=== PATIENT | female | born 1990 | race Two or more races ===

== ENCOUNTER 2021-11-24 14:26 | Inpatient (IN) | payer MEDICARE, MEDICAID ==
[~2021-11-24] VITALS: Ht 152.4 cm; Wt 91.3 kg
[2021-11-25 01:14] VITALS: BP 117/78
[2021-11-25] MEDS ORDERED: NICOTINE 14 MG/24 HOUR PATCH TD PRN (06:45)
[2021-11-25] MEDS ORDERED: CloNIDine HCL 0.1 MG TABLET PO PRN (06:45)
[2021-11-25] MEDS ORDERED: DOCUSATE SODIUM 100 MG CAPSULE PO PRN (06:45)
[2021-11-25] MEDS ORDERED: MAGNESIUM HYDROXIDE SUSPENSION 30 ML UDCUP PO PRN (06:45)
[2021-11-25] MEDS ORDERED: LOPERAMIDE HCL 2 MG CAPSULE PO PRN (06:45)
[2021-11-25 07:15] LABS: BASOPHILS % (AUTO) 0.3 % (0.0-2.0); EOSINOPHILS % (AUTO) 1.9 % (1.0-6.0); HEMOGLOBIN 12.1 g/dL (12.0-16.0); LYMPHOCYTES # (AUTO) 2.9 K/uL (1.0-4.8); LYMPHOCYTES % (AUTO) 42.6 % (22.0-44.0); MEAN CORPUSCULAR HEMOGLOBIN 27.2 pg (26.0-34.0); MEAN CORPUSCULAR HGB CONC 32.8 G/dL (31.0-37.0); MEAN CORPUSCULAR VOLUME 83 fL (80-100); MONOCYTES # (AUTO) 0.6 K/uL (0.1-1.0); MONOCYTES % (AUTO) 9.3 % (2.0-9.0); NEUTROPHILS # (AUTO) 3.2 K/uL (1.8-7.7); NEUTROPHILS % (AUTO) 45.9 % (40.0-70.0); PLATELET COUNT (AUTO) 316 K/uL (150-450); RED BLOOD CELL COUNT(AUTO) 4.46 MIL/uL (4.00-5.20); RED CELL DISTRIBUTION WIDTH 15.1 % (11.5-14.5)
[2021-11-25 07:45] LABS: ALANINE AMINOTRANSFERASE 58 U/L (12-78); ALBUMIN 3.2 g/dL (3.4-5.0); ALKALINE PHOSPHATASE 56 U/L (46-116); ANION GAP 9 mmol/L (8-16); ASPARTATE AMINOTRANSFERASE 39 U/L (15-37); BILIRUBIN,TOTAL 0.5 mg/dL (0.1-1.0); CALCIUM, TOTAL 9.4 mg/dL (8.8-10.5); CARBON DIOXIDE 29 mmol/L (22-29); CHLORIDE 103 mmol/L (98-107); CHOL/HDL RATIO 2.6 (3.9-5.7); CHOLESTEROL 141 mg/dL (131-200); CREATININE 0.65 mg/dL (0.60-1.30); FREE T4 (FREE THYROXINE) 1.64 ng/dL (0.76-1.46); GLUCOSE,RANDOM 82 mg/dL (70-110); HCG,QUANTITATIVE < 1 mIU/mL (0-6); HDL CHOLESTEROL 55 mg/dL (40-60); LDL CHOL (CALC.) 70 mg/dL (0-130); POTASSIUM 3.2 mmol/L (3.5-5.1); SODIUM SERUM 141 mmol/L (136-145); THYROID STIMULATING HORMONE 0.88 uIU/mL (0.36-3.74); TOTAL PROTEIN, SERUM 6.8 g/dL (6.4-8.2); TRIGLYCERIDES 82 mg/dL (15-150); UREA NITROGEN, BLOOD 16 mg/dL (7-18)
[2021-11-25 07:46] LABS: GLOMERULAR FILTR. RATE CALC > 60 mL/min (>60)
[2021-11-25 07:53] LABS: HEMOGLOBIN A1C 5.3 % (3.8-5.6)
[2021-11-25 08:38] VITALS: BP 130/85
[2021-11-25] MEDS: HALOPERIDOL 5 MG TABLET PO PRN (09:13)
[2021-11-25] MEDS: LORazepam 2 MG TABLET PO PRN ×2 (09:13→19:03)
[2021-11-25] MEDS ORDERED: POTASSIUM CHLORIDE 20 MEQ ER TABLET PO ONE (11:00)
[2021-11-25] MEDS: DIVALPROEX SODIUM 500 MG DR TABLET PO SCH ×2 (12:30→20:10)
[2021-11-25] MEDS: RisperiDONE 2 MG TABLET PO SCH ×2 (12:30→20:10)
[2021-11-25] MEDS: GuaiFENesin/D-METHORPHAN [SUGAR-FREE] 200-20MG/10 ML SYRUP UDCUP PO PRN (17:52)
[2021-11-26 04:13] VITALS: BP 134/92
[2021-11-26] MEDS: DIVALPROEX SODIUM 500 MG DR TABLET PO SCH ×2 (08:05→20:06)
[2021-11-26] MEDS: PETROLATUM,WHITE 28 GM JELLY TP PRN (08:05)
[2021-11-26] MEDS: RisperiDONE 2 MG TABLET PO SCH ×2 (08:06→20:06)
[2021-11-26 08:12] VITALS: BP 125/75
[2021-11-26] MEDS: LORazepam 2 MG TABLET PO PRN (09:01)
[2021-11-26] MEDS: GuaiFENesin/D-METHORPHAN [SUGAR-FREE] 200-20MG/10 ML SYRUP UDCUP PO PRN ×2 (10:33→18:17)
[2021-11-26] MEDS: MAG HYDROX/AL HYDROX/SIMETH ES 30 ML SUSPENSION UDCUP PO PRN ×2 (16:10→22:31)
[2021-11-26] MEDS: IBUPROFEN 400 MG TABLET PO PRN (17:41)
[2021-11-26 20:17] VITALS: BP 125/65
[2021-11-26] MEDS: ONDANSETRON HCL 4 MG TABLET PO PRN (21:06)
[2021-11-27] MEDS: GuaiFENesin/D-METHORPHAN [SUGAR-FREE] 200-20MG/10 ML SYRUP UDCUP PO PRN (00:59)
[2021-11-27] MEDS: IBUPROFEN 400 MG TABLET PO PRN ×2 (00:59→22:55)
[2021-11-27] MEDS: ONDANSETRON HCL 4 MG TABLET PO PRN ×2 (04:29→15:46)
[2021-11-27 08:24] VITALS: BP 132/87
[2021-11-27] MEDS: LORazepam 2 MG TABLET PO PRN (08:48)
[2021-11-27] MEDS: HALOPERIDOL 5 MG TABLET PO PRN (08:48)
[2021-11-27] MEDS: RisperiDONE 2 MG TABLET PO SCH ×2 (08:49→20:19)
[2021-11-27] MEDS: DIVALPROEX SODIUM 500 MG DR TABLET PO SCH ×2 (08:49→20:19)
[2021-11-27] MEDS: PETROLATUM,WHITE 28 GM JELLY TP PRN (10:24)
[2021-11-27] MEDS: MAG HYDROX/AL HYDROX/SIMETH ES 30 ML SUSPENSION UDCUP PO PRN ×2 (15:46→22:10)
[2021-11-27 21:25] VITALS: BP 133/84
[2021-11-28 04:24] VITALS: BP 128/64
[2021-11-28] MEDS: ONDANSETRON HCL 4 MG TABLET PO PRN ×4 (06:50→20:23)
[2021-11-28] MEDS: DIVALPROEX SODIUM 500 MG DR TABLET PO SCH ×2 (07:57→20:03)
[2021-11-28] MEDS: RisperiDONE 2 MG TABLET PO SCH ×2 (07:57→20:03)
[2021-11-28 08:12] VITALS: BP 141/87
[2021-11-28] MEDS: IBUPROFEN 400 MG TABLET PO PRN (10:00)
[2021-11-28 13:01] LABS: APPEARANCE,URINE CLEAR (CLEAR); BILIRUBIN,URINE NEGATIVE (NEGATIVE); GLUCOSE, URINE (UA) NEGATIVE (NEGATIVE); KETONES,URINE NEGATIVE (NEGATIVE); LEUKOCYTE ESTERASE ,URINE NEGATIVE (NEGATIVE); NITRATE,URINE NEGATIVE (NEGATIVE); OCCULT BLOOD,URINE NEGATIVE (NEGATIVE); PROTEIN,URINE NEGATIVE (NEGATIVE); SPECIFIC GRAVITIY, URINE 1.002 (1.003-1.030); UROBILINOGEN,URINE <=1.0 mg/dL (<=1.0)
[2021-11-28 13:11] LABS: AMPHET/METH SCREEN,URINE NEGATIVE (NEGATIVE); BARBITURATE SCREEN, URINE NEGATIVE (NEGATIVE); BENZODIAZEPINES SCREEN,URINE NEGATIVE (NEGATIVE); CANNABINOID SCREEN,URINE NEGATIVE (NEGATIVE); COCAINE SCREEN,URINE NEGATIVE (NEGATIVE); METHADONE SCREEN, URINE NEGATIVE (NEGATIVE); OPIATE SCREEN,URINE NEGATIVE (NEGATIVE)
[2021-11-28 13:14] LABS: PHENCYCLIDINE SCREEN,URINE NEGATIVE (NEGATIVE)
[2021-11-28] MEDS: LORazepam 2 MG TABLET PO PRN ×2 (16:06→20:58)
[2021-11-28 20:46] VITALS: BP 119/87
[2021-11-29] MEDS: ONDANSETRON HCL 4 MG TABLET PO PRN ×2 (04:33→13:54)
[2021-11-29] MEDS: IBUPROFEN 400 MG TABLET PO PRN ×2 (04:39→16:53)
[2021-11-29] MEDS: RisperiDONE 2 MG TABLET PO SCH ×2 (08:18→20:10)
[2021-11-29] MEDS: DIVALPROEX SODIUM 500 MG DR TABLET PO SCH ×2 (08:18→20:10)
[2021-11-29 08:24] VITALS: BP 130/80
[2021-11-29] MEDS: LORazepam 2 MG TABLET PO PRN (10:34)
[2021-11-29 16:50] VITALS: BP 128/82
[2021-11-29 20:29] VITALS: BP 128/82
[2021-11-30] MEDS: ZOLPIDEM TARTRATE 10 MG TABLET PO PRN (02:04)
[2021-11-30] MEDS: IBUPROFEN 400 MG TABLET PO PRN ×3 (02:04→19:10)
[2021-11-30] MEDS: LORazepam 2 MG TABLET PO PRN ×2 (02:04→09:35)
[2021-11-30 08:40] VITALS: BP 122/73
[2021-11-30] MEDS: DIVALPROEX SODIUM 500 MG DR TABLET PO SCH ×2 (09:00→21:00)
[2021-11-30] MEDS: RisperiDONE 2 MG TABLET PO SCH ×2 (09:00→21:00)
[2021-11-30] MEDS: ONDANSETRON HCL 4 MG TABLET PO PRN (09:42)
[2021-11-30] MEDS: MAG HYDROX/AL HYDROX/SIMETH ES 30 ML SUSPENSION UDCUP PO PRN (16:02)
[2021-11-30 21:23] VITALS: BP 125/76
[2021-12-01] MEDS: ONDANSETRON HCL 4 MG TABLET PO PRN ×4 (00:51→20:18)
[2021-12-01] MEDS: LORazepam 2 MG TABLET PO PRN ×3 (00:52→14:58)
[2021-12-01] MEDS: ACETAMINOPHEN 325 MG TABLET PO PRN (00:52)
[2021-12-01 04:01] VITALS: BP 120/71
[2021-12-01] MEDS: IBUPROFEN 400 MG TABLET PO PRN (08:05)
[2021-12-01] MEDS: DIVALPROEX SODIUM 500 MG DR TABLET PO SCH ×2 (08:05→20:18)
[2021-12-01] MEDS: RisperiDONE 2 MG TABLET PO SCH ×2 (08:05→20:18)
[2021-12-01 20:50] VITALS: BP 131/69
[2021-12-02] MEDS: LORazepam 2 MG TABLET PO PRN ×2 (03:44→20:08)
[2021-12-02 03:46] VITALS: BP 145/84
[2021-12-02] MEDS: IBUPROFEN 400 MG TABLET PO PRN ×2 (03:50→13:24)
[2021-12-02] MEDS: ONDANSETRON HCL 4 MG TABLET PO PRN (04:25)
[2021-12-02 08:34] VITALS: BP 136/82
[2021-12-02] MEDS: RisperiDONE 2 MG TABLET PO SCH ×2 (08:39→20:08)
[2021-12-02] MEDS: DIVALPROEX SODIUM 500 MG DR TABLET PO SCH ×2 (08:40→20:08)
[2021-12-02] MEDS: MAG HYDROX/AL HYDROX/SIMETH ES 30 ML SUSPENSION UDCUP PO PRN (13:23)
[2021-12-02 20:10] VITALS: BP 137/77
[2021-12-03] MEDS: MAG HYDROX/AL HYDROX/SIMETH ES 30 ML SUSPENSION UDCUP PO PRN ×2 (01:43→19:52)
[2021-12-03] MEDS: LORazepam 2 MG TABLET PO PRN ×2 (08:16→20:11)
[2021-12-03] MEDS: RisperiDONE 2 MG TABLET PO SCH ×2 (08:17→20:11)
[2021-12-03] MEDS: DIVALPROEX SODIUM 500 MG DR TABLET PO SCH ×2 (09:00→20:14)
[2021-12-03] MEDS: HALOPERIDOL LACTATE 5 MG/ML VIAL IM PRN ×2 (09:34→20:24)
[2021-12-03 10:10] VITALS: BP 123/72
[2021-12-03] MEDS: ONDANSETRON HCL 4 MG TABLET PO PRN (12:01)
[2021-12-03 20:04] VITALS: BP 128/81
[2021-12-04] MEDS: ACETAMINOPHEN 325 MG TABLET PO PRN ×2 (05:58→06:02)
[2021-12-04] MEDS: IBUPROFEN 400 MG TABLET PO PRN (06:06)
[2021-12-04] MEDS: RisperiDONE 2 MG TABLET PO SCH ×2 (08:14→20:24)
[2021-12-04] MEDS: DIVALPROEX SODIUM 500 MG DR TABLET PO SCH ×3 (08:14→20:24)
[2021-12-04] MEDS: LORazepam 2 MG TABLET PO PRN ×2 (08:17→20:31)
[2021-12-04] MEDS: HALOPERIDOL LACTATE 5 MG/ML VIAL IM PRN ×2 (08:58→20:24)
[2021-12-04 10:58] VITALS: BP 124/68
[2021-12-04] MEDS: ONDANSETRON HCL 4 MG TABLET PO PRN (11:19)
[2021-12-04] MEDS: MAG HYDROX/AL HYDROX/SIMETH ES 30 ML SUSPENSION UDCUP PO PRN (20:31)
[2021-12-05 00:10] VITALS: BP 120/81
[2021-12-05] MEDS: ZOLPIDEM TARTRATE 10 MG TABLET PO PRN (00:57)
[2021-12-05] MEDS: LORazepam 2 MG TABLET PO PRN ×3 (01:20→20:35)
[2021-12-05] MEDS: ONDANSETRON HCL 4 MG TABLET PO PRN (01:20)
[2021-12-05] MEDS: DIVALPROEX SODIUM 500 MG DR TABLET PO SCH ×2 (08:26→20:39)
[2021-12-05] MEDS: IBUPROFEN 400 MG TABLET PO PRN (08:26)
[2021-12-05] MEDS: RisperiDONE 2 MG TABLET PO SCH ×2 (08:26→20:35)
[2021-12-05] MEDS: HALOPERIDOL LACTATE 5 MG/ML VIAL IM PRN ×2 (08:38→20:39)
[2021-12-05] MEDS: MAG HYDROX/AL HYDROX/SIMETH ES 30 ML SUSPENSION UDCUP PO PRN ×2 (10:22→20:35)
[2021-12-05] MEDS: ACETAMINOPHEN 325 MG TABLET PO PRN (20:34)
[2021-12-06] MEDS: LORazepam 2 MG TABLET PO PRN ×3 (03:10→17:41)
[2021-12-06] MEDS: HALOPERIDOL 5 MG TABLET PO PRN ×2 (03:10→17:42)
[2021-12-06] MEDS: GuaiFENesin/D-METHORPHAN [SUGAR-FREE] 200-20MG/10 ML SYRUP UDCUP PO PRN (03:40)
[2021-12-06] MEDS: PETROLATUM,WHITE 28 GM JELLY TP PRN (04:30)
[2021-12-06 05:03] VITALS: BP 119/75
[2021-12-06] MEDS: RisperiDONE 2 MG TABLET PO SCH ×2 (08:14→21:00)
[2021-12-06] MEDS: IBUPROFEN 400 MG TABLET PO PRN ×2 (08:14→16:17)
[2021-12-06] MEDS: MAG HYDROX/AL HYDROX/SIMETH ES 30 ML SUSPENSION UDCUP PO PRN (08:14)
[2021-12-06] MEDS: DIVALPROEX SODIUM 500 MG DR TABLET PO SCH ×2 (08:15→21:00)
[2021-12-06] MEDS: HALOPERIDOL LACTATE 5 MG/ML VIAL IM PRN ×3 (08:16→21:11)
[2021-12-06 16:20] VITALS: BP 122/74
[2021-12-06 17:20] VITALS: BP 132/78
[2021-12-06 20:12] VITALS: BP 131/83
[2021-12-07 00:23] VITALS: BP 138/84
[2021-12-07] MEDS: LORazepam 2 MG TABLET PO PRN ×2 (00:24→09:09)
[2021-12-07] MEDS: HALOPERIDOL 5 MG TABLET PO PRN ×2 (04:19→13:58)
[2021-12-07 05:00] VITALS: BP 134/72
[2021-12-07] MEDS: IBUPROFEN 400 MG TABLET PO PRN ×2 (05:00→13:49)
[2021-12-07] MEDS: RisperiDONE 2 MG TABLET PO SCH ×2 (08:41→20:29)
[2021-12-07] MEDS: DIVALPROEX SODIUM 500 MG DR TABLET PO SCH ×2 (08:44→20:29)
[2021-12-07] MEDS: HALOPERIDOL LACTATE 5 MG/ML VIAL IM PRN (08:45)
[2021-12-07 20:14] VITALS: BP 125/72
[2021-12-08] MEDS: LORazepam 2 MG TABLET PO PRN ×4 (02:18→23:32)
[2021-12-08] MEDS: ZOLPIDEM TARTRATE 10 MG TABLET PO PRN (02:18)
[2021-12-08] MEDS: HALOPERIDOL 5 MG TABLET PO PRN ×2 (02:18→13:42)
[2021-12-08] MEDS: RisperiDONE 2 MG TABLET PO SCH (08:10)
[2021-12-08] MEDS: DIVALPROEX SODIUM 500 MG DR TABLET PO SCH (08:15)
[2021-12-08] MEDS: HALOPERIDOL LACTATE 5 MG/ML VIAL IM PRN (08:16)
[2021-12-08 08:18] VITALS: BP 126/71
[2021-12-08] MEDS ORDERED: RisperiDONE 3 MG TABLET PO SCH (09:00)
[2021-12-08] MEDS: ALBUTEROL SULFATE HFA 90 MCG/PUFF 8 GM INHALER IH PRN ×2 (10:00→23:47)
[2021-12-08] MEDS: IBUPROFEN 400 MG TABLET PO PRN ×2 (13:57→23:43)
[2021-12-08 20:18] VITALS: BP 122/73
[2021-12-08] MEDS: RisperiDONE 3 MG TABLET PO SCH (20:24)
[2021-12-08 23:32] VITALS: BP 103/65
[2021-12-09] MEDS: ZOLPIDEM TARTRATE 10 MG TABLET PO PRN ×2 (02:59→23:00)
[2021-12-09] MEDS: ACETAMINOPHEN 325 MG TABLET PO PRN (06:07)
[2021-12-09 08:08] VITALS: BP 116/68
[2021-12-09] MEDS: GuaiFENesin/D-METHORPHAN [SUGAR-FREE] 200-20MG/10 ML SYRUP UDCUP PO PRN (09:07)
[2021-12-09] MEDS: RisperiDONE 3 MG TABLET PO SCH ×2 (09:08→20:17)
[2021-12-09] MEDS: LORazepam 2 MG TABLET PO PRN ×3 (09:08→20:18)
[2021-12-09] MEDS: HALOPERIDOL 5 MG TABLET PO PRN ×3 (09:08→20:18)
[2021-12-09] MEDS: IBUPROFEN 400 MG TABLET PO PRN (09:12)
[2021-12-09 20:12] VITALS: BP 111/73
[2021-12-10 02:31] VITALS: BP 131/82
[2021-12-10] MEDS: HALOPERIDOL 5 MG TABLET PO PRN (02:39)
[2021-12-10] MEDS: LORazepam 2 MG TABLET PO PRN ×3 (02:39→22:28)
[2021-12-10] MEDS: ACETAMINOPHEN 325 MG TABLET PO PRN (02:48)
[2021-12-10] MEDS: ALBUTEROL SULFATE HFA 90 MCG/PUFF 8 GM INHALER IH PRN ×2 (04:32→22:32)
[2021-12-10] MEDS: RisperiDONE 3 MG TABLET PO SCH ×2 (08:05→20:33)
[2021-12-10] MEDS: IBUPROFEN 400 MG TABLET PO PRN ×2 (08:05→22:30)
[2021-12-10 08:06] VITALS: BP 124/79
[2021-12-10] MEDS: PETROLATUM,WHITE 28 GM JELLY TP PRN (10:04)
[2021-12-10 16:26] LABS: GLUCOMETER DEV NAME(LOC) POC.BV
[2021-12-10 20:23] VITALS: BP 132/72
[2021-12-11] MEDS: LORazepam 2 MG TABLET PO PRN ×4 (04:01→20:53)
[2021-12-11] MEDS: GuaiFENesin/D-METHORPHAN [SUGAR-FREE] 200-20MG/10 ML SYRUP UDCUP PO PRN (04:01)
[2021-12-11 04:12] VITALS: BP 136/76
[2021-12-11 08:21] VITALS: BP 124/72
[2021-12-11] MEDS: RisperiDONE 3 MG TABLET PO SCH ×2 (08:44→20:21)
[2021-12-11] MEDS: HALOPERIDOL 5 MG TABLET PO PRN ×2 (08:46→14:33)
[2021-12-11] MEDS: ACETAMINOPHEN 325 MG TABLET PO PRN (14:34)
[2021-12-11 20:11] VITALS: BP 140/85
[2021-12-11] MEDS: ZOLPIDEM TARTRATE 10 MG TABLET PO PRN (20:20)
[2021-12-11] MEDS: ALBUTEROL SULFATE HFA 90 MCG/PUFF 8 GM INHALER IH PRN (22:58)
[2021-12-12] MEDS: LORazepam 2 MG TABLET PO PRN ×2 (08:04→20:15)
[2021-12-12] MEDS: RisperiDONE 3 MG TABLET PO SCH ×2 (08:04→20:15)
[2021-12-12 10:17] VITALS: BP 128/75
[2021-12-12] MEDS: IBUPROFEN 400 MG TABLET PO PRN (13:37)
[2021-12-12] MEDS: GuaiFENesin/D-METHORPHAN [SUGAR-FREE] 200-20MG/10 ML SYRUP UDCUP PO PRN (13:38)
[2021-12-12] MEDS: ALBUTEROL SULFATE HFA 90 MCG/PUFF 8 GM INHALER IH PRN (20:25)
[2021-12-12 21:23] VITALS: BP 127/72
[2021-12-13 00:47] VITALS: BP 106/62
[2021-12-13] MEDS: GuaiFENesin/D-METHORPHAN [SUGAR-FREE] 200-20MG/10 ML SYRUP UDCUP PO PRN (01:18)
[2021-12-13] MEDS: ACETAMINOPHEN 325 MG TABLET PO PRN (01:18)
[2021-12-13 08:06] LABS: GLUCOMETER DEV NAME(LOC) POC.BV
[2021-12-13 08:53] VITALS: BP 114/70
[2021-12-13] MEDS: RisperiDONE 3 MG TABLET PO SCH (20:09)
== END 2021-12-13 21:58 | disposition home or self-care (01) | DRG 885 ==
LOC: B3A 20:12
PROVIDERS: ADMIT Psychiatry & Neurology Psychiatry; ATTEND Psychiatry & Neurology Psychiatry
DX: F25.0 Schizoaffective disorder, bipolar type (principal); F31.4 Bipolar disorder, current episode depressed, severe, without psychotic features; E66.9 Obesity, unspecified; E87.6 Hypokalemia; F10.10 Alcohol abuse, uncomplicated; R74.01 Elevation of levels of liver transaminase levels; Z20.822 Contact with and (suspected) exposure to COVID-19; Z79.899 Other long term (current) drug therapy; Z59.00 Homelessness unspecified; Z68.39 Body mass index [BMI] 39.0-39.9, adult; Z88.0 Allergy status to penicillin; Z88.1 Allergy status to other antibiotic agents
CPT/HCPCS: 80053; 80061; 80307; 81003; 83036; 84132; 84439; 84443; 84702; 85025; J1630; J3535; Q0162

== ENCOUNTER 2021-12-13 10:06 | Inpatient (IN) | payer MEDICARE, OTHER ==
[~2021-12-13] VITALS: Ht 162.6 cm; Wt 89.2 kg
[2021-12-13] MEDS ORDERED: ACETAMINOPHEN 500 MG TABLET PO ONE (11:30)
[2021-12-13 11:36] LABS: BASOPHILS % (AUTO) 0.2 % (0.0-2.0); EOSINOPHILS % (AUTO) 0 % (1.0-6.0); HEMATOCRIT 37.9 % (36-46); HEMOGLOBIN 12.1 g/dL (12.0-16.0); LYMPHOCYTES # (AUTO) 1.9 K/uL (1.0-4.8); LYMPHOCYTES % (AUTO) 10.3 % (22.0-44.0); MEAN CORPUSCULAR HEMOGLOBIN 26.9 pg (26.0-34.0); MEAN CORPUSCULAR HGB CONC 31.9 G/dL (31.0-37.0); MEAN CORPUSCULAR VOLUME 84 fL (80-100); MONOCYTES # (AUTO) 1.8 K/uL (0.1-1.0); MONOCYTES % (AUTO) 9.6 % (2.0-9.0); NEUTROPHILS # (AUTO) 14.7 K/uL (1.8-7.7); NEUTROPHILS % (AUTO) 79.9 % (40.0-70.0); PLATELET COUNT (AUTO) 340 K/uL (150-450); RED BLOOD CELL COUNT(AUTO) 4.51 MIL/uL (4.00-5.20); RED CELL DISTRIBUTION WIDTH 15.4 % (11.5-14.5)
[2021-12-13 11:43] LABS: COVID AG,FIA SOURCE NASOPHARYNGEAL
[2021-12-13 11:48] LABS: ANION GAP 7 mmol/L (8-16); CALCIUM, TOTAL 9.4 mg/dL (8.8-10.5); CARBON DIOXIDE 30 mmol/L (22-29); CHLORIDE 97 mmol/L (98-107); CREATININE 0.72 mg/dL (0.60-1.30); GLUCOSE,RANDOM 111 mg/dL (70-110); POTASSIUM 3.3 mmol/L (3.5-5.1); SODIUM SERUM 134 mmol/L (136-145); UREA NITROGEN, BLOOD 15 mg/dL (7-18)
[2021-12-13 11:49] LABS: GLOMERULAR FILTR. RATE CALC > 60 mL/min (>60)
[2021-12-13 11:54] LABS: ALANINE AMINOTRANSFERASE 30 U/L (12-78); ALBUMIN 3.2 g/dL (3.4-5.0); ALKALINE PHOSPHATASE 86 U/L (46-116); ASPARTATE AMINOTRANSFERASE 17 U/L (15-37); BILIRUBIN,TOTAL 0.4 mg/dL (0.1-1.0); TOTAL PROTEIN, SERUM 7.8 g/dL (6.4-8.2)
[2021-12-13 12:04] LABS: LACTIC ACID 1.3 mmol/L (0.4-2.0)
[2021-12-13 12:08] LABS: INFLUENZA TYPE A NEGATIVE FOR TYPE A (NEGATIVE); INFLUENZA TYPE B NEGATIVE FOR TYPE B (NEGATIVE)
[2021-12-13] MEDS ORDERED: CLINDAMYCIN 600 MG/D5% WATER 50 ML IV ONE (13:30)
[2021-12-13] MEDS ORDERED: DEXAMETHASONE SOD PHOS 4 MG/ML 5 ML VIAL IVP ONE (13:30)
[2021-12-13] MEDS ORDERED: SODIUM CHLORIDE 0.9% 100 ML ONE (13:56)
[2021-12-13] MEDS ORDERED: IOHEXOL 350 MG/ML 100 ML VIAL ONE (13:56)
[2021-12-13] MEDS ORDERED: SODIUM CHLORIDE 0.9% 1,000 ML IV ONE (14:45)
[2021-12-13] MEDS ORDERED: POTASSIUM CHLORIDE 10% 40 MEQ/30 ML LIQUID UDCUP PO ONE (19:15)
[2021-12-13] MEDS ORDERED: ACETAMINOPHEN 325 MG TABLET PO PRN (19:15)
[2021-12-13] MEDS ORDERED: ONDANSETRON HCL 4 MG/2 ML VIAL IVP PRN (19:15)
[2021-12-13] MEDS: SODIUM CHLORIDE 0.9% 1,000 ML IV SCH (19:21)
[2021-12-13 20:09] LABS: APPEARANCE,URINE CLEAR (CLEAR); BILIRUBIN,URINE NEGATIVE (NEGATIVE); GLUCOSE, URINE (UA) NEGATIVE (NEGATIVE); KETONES,URINE NEGATIVE (NEGATIVE); LEUKOCYTE ESTERASE ,URINE TRACE (NEGATIVE); NITRATE,URINE NEGATIVE (NEGATIVE); OCCULT BLOOD,URINE NEGATIVE (NEGATIVE); PROTEIN,URINE NEGATIVE (NEGATIVE); UROBILINOGEN,URINE <=1.0 mg/dL (<=1.0)
[2021-12-13 20:21] LABS: BACTERIA,URINE None Seen /HPF (None Seen); RBC,URINE None Seen /HPF (0-2); SQUAMOUS EPITHELIAL CELL,UR Moderate /LPF (None Seen)
[2021-12-13 22:00] VITALS: BP 111/63
[2021-12-14] MEDS: CLINDAMYCIN 600 MG/D5% WATER 50 ML IV SCH ×3 (03:00→17:51)
[2021-12-14 03:31] VITALS: BP 131/76
[2021-12-14] MEDS: SODIUM CHLORIDE 0.9% 1,000 ML IV SCH (11:06)
[2021-12-14 12:08] VITALS: BP 116/91
[2021-12-14] MEDS ORDERED: BISACODYL 10 MG RECTAL RECTAL SUPPOSITORY PR PRN (13:45)
[2021-12-14] MEDS ORDERED: IPRATROPIUM BROMIDE 0.5 MG/2.5 ML NEB SOLUTION NEB PRN (13:45)
[2021-12-14] MEDS ORDERED: ALBUTEROL SULFATE 2.5 MG/0.5 ML NEB SOLUTION NEB PRN (13:45)
[2021-12-14] MEDS ORDERED: ONDANSETRON HCL 4 MG/2 ML VIAL IVP PRN (13:45)
[2021-12-14] MEDS ORDERED: MAGNESIUM HYDROXIDE SUSPENSION 30 ML UDCUP PO PRN (13:45)
[2021-12-14] MEDS: LORazepam 2 MG TABLET PO PRN ×2 (14:34→22:04)
[2021-12-14] MEDS: ACETAMINOPHEN 325 MG TABLET PO PRN (14:34)
[2021-12-14 16:00] VITALS: BP 120/84
[2021-12-14] MEDS: HEPARIN SODIUM,PORCINE 5,000 UNITS/ML VIAL SQ SCH (16:04)
[2021-12-14 20:14] VITALS: BP 128/82
[2021-12-14] MEDS: ZOLPIDEM TARTRATE 5 MG TABLET PO PRN (22:04)
[2021-12-14 23:05] VITALS: BP 108/64
[2021-12-15] MEDS ORDERED: HEPARIN SODIUM,PORCINE 5,000 UNITS/ML VIAL SQ SCH
[2021-12-15] MEDS: CLINDAMYCIN 600 MG/D5% WATER 50 ML IV SCH ×3 (00:34→17:03)
[2021-12-15] MEDS: SODIUM CHLORIDE 0.9% 1,000 ML IV SCH ×3 (00:34→21:30)
[2021-12-15] MEDS: HEPARIN SODIUM,PORCINE 5,000 UNITS/ML VIAL SQ SCH ×3 (00:34→16:31)
[2021-12-15 04:13] VITALS: BP 121/79
[2021-12-15] MEDS: LORazepam 2 MG TABLET PO PRN ×4 (04:33→21:48)
[2021-12-15] MEDS: ACETAMINOPHEN 325 MG TABLET PO PRN ×3 (04:34→17:02)
[2021-12-15] MEDS: PANTOPRAZOLE SODIUM 40 MG DR TABLET PO SCH (09:00)
[2021-12-15 10:28] VITALS: BP 130/84
[2021-12-15 12:12] VITALS: BP 123/69
[2021-12-15 16:03] VITALS: BP 118/73
[2021-12-15 19:20] LABS: BASOPHILS % (AUTO) 0.7 % (0.0-2.0); EOSINOPHILS % (AUTO) 0.3 % (1.0-6.0); HEMATOCRIT 36.6 % (36-46); HEMOGLOBIN 11.9 g/dL (12.0-16.0); LYMPHOCYTES # (AUTO) 3.3 K/uL (1.0-4.8); LYMPHOCYTES % (AUTO) 17.6 % (22.0-44.0); MEAN CORPUSCULAR HEMOGLOBIN 27.1 pg (26.0-34.0); MEAN CORPUSCULAR HGB CONC 32.6 G/dL (31.0-37.0); MEAN CORPUSCULAR VOLUME 83 fL (80-100); MONOCYTES % (AUTO) 5.5 % (2.0-9.0); NEUTROPHILS # (AUTO) 14.1 K/uL (1.8-7.7); NEUTROPHILS % (AUTO) 75.9 % (40.0-70.0); PLATELET COUNT (AUTO) 409 K/uL (150-450); RED CELL DISTRIBUTION WIDTH 15.6 % (11.5-14.5)
[2021-12-15 19:26] LABS: ANION GAP 10 mmol/L (8-16); CALCIUM, TOTAL 9.5 mg/dL (8.8-10.5); CARBON DIOXIDE 26 mmol/L (22-29); CHLORIDE 99 mmol/L (98-107); CREATININE 0.78 mg/dL (0.60-1.30); GLUCOSE,RANDOM 133 mg/dL (70-110); POTASSIUM 3.3 mmol/L (3.5-5.1); SODIUM SERUM 135 mmol/L (136-145); UREA NITROGEN, BLOOD 11 mg/dL (7-18)
[2021-12-15 19:27] LABS: GLOMERULAR FILTR. RATE CALC > 60 mL/min (>60)
[2021-12-15 19:32] LABS: ALANINE AMINOTRANSFERASE 47 U/L (12-78); ALBUMIN 3.1 g/dL (3.4-5.0); ALKALINE PHOSPHATASE 92 U/L (46-116); ASPARTATE AMINOTRANSFERASE 22 U/L (15-37); BILIRUBIN,TOTAL 0.4 mg/dL (0.1-1.0); TOTAL PROTEIN, SERUM 7.8 g/dL (6.4-8.2)
[2021-12-15 20:11] VITALS: BP 115/64
[2021-12-15] MEDS: IBUPROFEN 600 MG TABLET PO PRN (21:42)
[2021-12-15] MEDS: RisperiDONE 3 MG TABLET PO SCH (21:42)
[2021-12-16] MEDS: CLINDAMYCIN 600 MG/D5% WATER 50 ML IV SCH ×3 (02:58→18:41)
[2021-12-16 03:52] VITALS: BP 126/71
[2021-12-16 06:13] LABS: BASOPHILS % (AUTO) 0.2 % (0.0-2.0); EOSINOPHILS % (AUTO) 0.3 % (1.0-6.0); HEMATOCRIT 34.5 % (36-46); LYMPHOCYTES # (AUTO) 3.2 K/uL (1.0-4.8); LYMPHOCYTES % (AUTO) 22.1 % (22.0-44.0); MEAN CORPUSCULAR HEMOGLOBIN 26.6 pg (26.0-34.0); MEAN CORPUSCULAR HGB CONC 31.8 G/dL (31.0-37.0); MEAN CORPUSCULAR VOLUME 84 fL (80-100); MONOCYTES # (AUTO) 1.1 K/uL (0.1-1.0); MONOCYTES % (AUTO) 7.6 % (2.0-9.0); NEUTROPHILS % (AUTO) 69.8 % (40.0-70.0); PLATELET COUNT (AUTO) 372 K/uL (150-450); RED BLOOD CELL COUNT(AUTO) 4.11 MIL/uL (4.00-5.20); RED CELL DISTRIBUTION WIDTH 15.3 % (11.5-14.5)
[2021-12-16 06:30] LABS: ALANINE AMINOTRANSFERASE 46 U/L (12-78); ALBUMIN 2.9 g/dL (3.4-5.0); ALKALINE PHOSPHATASE 79 U/L (46-116); ANION GAP 7 mmol/L (8-16); ASPARTATE AMINOTRANSFERASE 17 U/L (15-37); BILIRUBIN,TOTAL 0.4 mg/dL (0.1-1.0); CALCIUM, TOTAL 9.2 mg/dL (8.8-10.5); CARBON DIOXIDE 29 mmol/L (22-29); CHLORIDE 101 mmol/L (98-107); CREATININE 0.53 mg/dL (0.60-1.30); GLUCOSE,RANDOM 96 mg/dL (70-110); POTASSIUM 3.3 mmol/L (3.5-5.1); SODIUM SERUM 137 mmol/L (136-145); TOTAL PROTEIN, SERUM 7.2 g/dL (6.4-8.2); UREA NITROGEN, BLOOD 7 mg/dL (7-18)
[2021-12-16 06:38] LABS: GLOMERULAR FILTR. RATE CALC > 60 mL/min (>60)
[2021-12-16] MEDS: IBUPROFEN 600 MG TABLET PO PRN (06:53)
[2021-12-16 07:39] VITALS: BP 113/72
[2021-12-16] MEDS: SODIUM CHLORIDE 0.9% 1,000 ML IV SCH ×2 (08:00→18:00)
[2021-12-16] MEDS: HEPARIN SODIUM,PORCINE 5,000 UNITS/ML VIAL SQ SCH ×4 (08:00→23:55)
[2021-12-16] MEDS: PANTOPRAZOLE SODIUM 40 MG DR TABLET PO SCH (08:48)
[2021-12-16] MEDS: RisperiDONE 3 MG TABLET PO SCH ×2 (09:32→20:53)
[2021-12-16] MEDS ORDERED: IOHEXOL 350 MG/ML 100 ML VIAL ONE (11:22)
[2021-12-16] MEDS ORDERED: SODIUM CHLORIDE 0.9% 100 ML ONE (11:22)
[2021-12-16 16:39] VITALS: BP 116/67
[2021-12-16 19:15] VITALS: BP 133/79
[2021-12-17] MEDS: CLINDAMYCIN 600 MG/D5% WATER 50 ML IV SCH ×4 (01:08→17:21)
[2021-12-17] MEDS: LORazepam 2 MG TABLET PO PRN ×2 (01:22→20:13)
[2021-12-17 04:45] VITALS: BP 139/75
[2021-12-17 08:00] VITALS: BP 131/78
[2021-12-17] MEDS: RisperiDONE 3 MG TABLET PO SCH ×2 (08:22→20:09)
[2021-12-17] MEDS: PANTOPRAZOLE SODIUM 40 MG DR TABLET PO SCH (08:22)
[2021-12-17] MEDS: HEPARIN SODIUM,PORCINE 5,000 UNITS/ML VIAL SQ SCH (08:24)
[2021-12-17 11:01] LABS: BASOPHILS % (AUTO) 0.6 % (0.0-2.0); EOSINOPHILS % (AUTO) 0.8 % (1.0-6.0); HEMATOCRIT 34.1 % (36-46); HEMOGLOBIN 10.8 g/dL (12.0-16.0); LYMPHOCYTES % (AUTO) 22.8 % (22.0-44.0); MEAN CORPUSCULAR HEMOGLOBIN 26.6 pg (26.0-34.0); MEAN CORPUSCULAR HGB CONC 31.8 G/dL (31.0-37.0); MEAN CORPUSCULAR VOLUME 84 fL (80-100); MONOCYTES % (AUTO) 7.5 % (2.0-9.0); NEUTROPHILS # (AUTO) 8.9 K/uL (1.8-7.7); NEUTROPHILS % (AUTO) 68.3 % (40.0-70.0); PLATELET COUNT (AUTO) 374 K/uL (150-450); RED BLOOD CELL COUNT(AUTO) 4.07 MIL/uL (4.00-5.20); RED CELL DISTRIBUTION WIDTH 14.9 % (11.5-14.5)
[2021-12-17 11:20] LABS: ALANINE AMINOTRANSFERASE 37 U/L (12-78); ALBUMIN 2.8 g/dL (3.4-5.0); ALKALINE PHOSPHATASE 73 U/L (46-116); ANION GAP 5 mmol/L (8-16); ASPARTATE AMINOTRANSFERASE 14 U/L (15-37); BILIRUBIN,TOTAL 0.3 mg/dL (0.1-1.0); CALCIUM, TOTAL 9.3 mg/dL (8.8-10.5); CARBON DIOXIDE 28 mmol/L (22-29); CHLORIDE 101 mmol/L (98-107); GLUCOSE,RANDOM 108 mg/dL (70-110); POTASSIUM 3.4 mmol/L (3.5-5.1); SODIUM SERUM 134 mmol/L (136-145); TOTAL PROTEIN, SERUM 7.1 g/dL (6.4-8.2); UREA NITROGEN, BLOOD 12 mg/dL (7-18)
[2021-12-17 11:23] LABS: GLOMERULAR FILTR. RATE CALC > 60 mL/min (>60)
[2021-12-17] MEDS: SODIUM CHLORIDE 0.9% 1,000 ML IV SCH ×2 (11:45→14:00)
[2021-12-17 16:02] VITALS: BP 138/75
[2021-12-17 19:30] VITALS: BP 130/81
[2021-12-17] MEDS: CLINDAMYCIN HCL 300 MG CAPSULE PO SCH (23:40)
[2021-12-18 04:00] VITALS: BP 112/82
[2021-12-18] MEDS: LORazepam 2 MG TABLET PO PRN ×2 (06:07→16:23)
[2021-12-18 06:45] LABS: BASOPHILS % (AUTO) 0.6 % (0.0-2.0); HEMATOCRIT 35.8 % (36-46); HEMOGLOBIN 11.6 g/dL (12.0-16.0); LYMPHOCYTES # (AUTO) 4.9 K/uL (1.0-4.8); LYMPHOCYTES % (AUTO) 27.6 % (22.0-44.0); MEAN CORPUSCULAR HEMOGLOBIN 27.3 pg (26.0-34.0); MEAN CORPUSCULAR HGB CONC 32.4 G/dL (31.0-37.0); MEAN CORPUSCULAR VOLUME 84 fL (80-100); MONOCYTES # (AUTO) 0.9 K/uL (0.1-1.0); MONOCYTES % (AUTO) 5.3 % (2.0-9.0); NEUTROPHILS # (AUTO) 11.5 K/uL (1.8-7.7); NEUTROPHILS % (AUTO) 65.5 % (40.0-70.0); PLATELET COUNT (AUTO) 366 K/uL (150-450); RED BLOOD CELL COUNT(AUTO) 4.25 MIL/uL (4.00-5.20); RED CELL DISTRIBUTION WIDTH 15.6 % (11.5-14.5)
[2021-12-18 06:50] LABS: ALANINE AMINOTRANSFERASE 35 U/L (12-78); ALBUMIN 2.9 g/dL (3.4-5.0); ALKALINE PHOSPHATASE 76 U/L (46-116); ANION GAP 6 mmol/L (8-16); ASPARTATE AMINOTRANSFERASE 21 U/L (15-37); BILIRUBIN,TOTAL 0.4 mg/dL (0.1-1.0); CALCIUM, TOTAL 9.7 mg/dL (8.8-10.5); CARBON DIOXIDE 27 mmol/L (22-29); CHLORIDE 100 mmol/L (98-107); CREATININE 0.59 mg/dL (0.60-1.30); GLUCOSE,RANDOM 92 mg/dL (70-110); POTASSIUM 4.1 mmol/L (3.5-5.1); SODIUM SERUM 133 mmol/L (136-145); TOTAL PROTEIN, SERUM 7.5 g/dL (6.4-8.2); UREA NITROGEN, BLOOD 14 mg/dL (7-18)
[2021-12-18 06:51] LABS: GLOMERULAR FILTR. RATE CALC > 60 mL/min (>60)
[2021-12-18 08:15] VITALS: BP 138/70
[2021-12-18] MEDS: CLINDAMYCIN HCL 300 MG CAPSULE PO SCH ×3 (08:43→23:45)
[2021-12-18] MEDS: PANTOPRAZOLE SODIUM 40 MG DR TABLET PO SCH (08:43)
[2021-12-18] MEDS: RisperiDONE 3 MG TABLET PO SCH ×2 (08:43→19:59)
[2021-12-18] MEDS: IBUPROFEN 600 MG TABLET PO PRN ×2 (08:43→16:23)
[2021-12-18] MEDS: SODIUM CHLORIDE 0.9% 1,000 ML IV SCH ×2 (10:00→19:58)
[2021-12-18 16:25] VITALS: BP 126/70
[2021-12-18 19:34] VITALS: BP 128/73
[2021-12-18] MEDS: ZOLPIDEM TARTRATE 5 MG TABLET PO PRN (23:48)
[2021-12-19 04:50] VITALS: BP 138/86
[2021-12-19] MEDS: SODIUM CHLORIDE 0.9% 1,000 ML IV SCH ×2 (06:00→16:00)
[2021-12-19 06:41] LABS: BASOPHILS % (AUTO) 0.7 % (0.0-2.0); EOSINOPHILS % (AUTO) 1.4 % (1.0-6.0); HEMOGLOBIN 11.4 g/dL (12.0-16.0); LYMPHOCYTES # (AUTO) 3.3 K/uL (1.0-4.8); LYMPHOCYTES % (AUTO) 23.6 % (22.0-44.0); MEAN CORPUSCULAR HEMOGLOBIN 26.7 pg (26.0-34.0); MEAN CORPUSCULAR HGB CONC 31.6 G/dL (31.0-37.0); MEAN CORPUSCULAR VOLUME 84 fL (80-100); MONOCYTES % (AUTO) 7.2 % (2.0-9.0); NEUTROPHILS # (AUTO) 9.3 K/uL (1.8-7.7); NEUTROPHILS % (AUTO) 67.1 % (40.0-70.0); PLATELET COUNT (AUTO) 425 K/uL (150-450); RED BLOOD CELL COUNT(AUTO) 4.26 MIL/uL (4.00-5.20); RED CELL DISTRIBUTION WIDTH 15.5 % (11.5-14.5)
[2021-12-19 07:00] LABS: ALANINE AMINOTRANSFERASE 35 U/L (12-78); ALBUMIN 3.1 g/dL (3.4-5.0); ALKALINE PHOSPHATASE 75 U/L (46-116); ANION GAP 9 mmol/L (8-16); ASPARTATE AMINOTRANSFERASE 15 U/L (15-37); BILIRUBIN,TOTAL 0.3 mg/dL (0.1-1.0); CALCIUM, TOTAL 9.8 mg/dL (8.8-10.5); CARBON DIOXIDE 29 mmol/L (22-29); CHLORIDE 101 mmol/L (98-107); CREATININE 0.54 mg/dL (0.60-1.30); GLUCOSE,RANDOM 88 mg/dL (70-110); POTASSIUM 4.4 mmol/L (3.5-5.1); SODIUM SERUM 139 mmol/L (136-145); TOTAL PROTEIN, SERUM 8.1 g/dL (6.4-8.2); UREA NITROGEN, BLOOD 12 mg/dL (7-18)
[2021-12-19 07:04] LABS: GLOMERULAR FILTR. RATE CALC > 60 mL/min (>60)
[2021-12-19 07:05] VITALS: BP 134/78
[2021-12-19] MEDS: PANTOPRAZOLE SODIUM 40 MG DR TABLET PO SCH (08:34)
[2021-12-19] MEDS: RisperiDONE 3 MG TABLET PO SCH ×2 (08:34→20:03)
[2021-12-19] MEDS: CLINDAMYCIN HCL 300 MG CAPSULE PO SCH ×3 (08:34→23:46)
[2021-12-19] MEDS: IBUPROFEN 600 MG TABLET PO PRN ×3 (08:37→22:41)
[2021-12-19] MEDS: ACETAMINOPHEN 325 MG TABLET PO PRN (12:15)
[2021-12-19 16:33] VITALS: BP 127/77
[2021-12-19] MEDS: LORazepam 2 MG TABLET PO PRN ×2 (17:31→23:04)
[2021-12-19 19:45] VITALS: BP 121/77
[2021-12-20] MEDS: SODIUM CHLORIDE 0.9% 1,000 ML IV SCH ×2 (02:00→12:00)
[2021-12-20 06:30] VITALS: BP 101/59
[2021-12-20 07:10] LABS: COVID AG,FIA SOURCE NASOPHARYNGEAL
[2021-12-20 07:24] LABS: BASOPHILS % (AUTO) 0.4 % (0.0-2.0); EOSINOPHILS % (AUTO) 1.6 % (1.0-6.0); HEMATOCRIT 32.6 % (36-46); HEMOGLOBIN 10.4 g/dL (12.0-16.0); LYMPHOCYTES # (AUTO) 4.1 K/uL (1.0-4.8); LYMPHOCYTES % (AUTO) 34.6 % (22.0-44.0); MEAN CORPUSCULAR HEMOGLOBIN 26.9 pg (26.0-34.0); MEAN CORPUSCULAR HGB CONC 31.9 G/dL (31.0-37.0); MEAN CORPUSCULAR VOLUME 84 fL (80-100); MONOCYTES # (AUTO) 0.9 K/uL (0.1-1.0); MONOCYTES % (AUTO) 7.4 % (2.0-9.0); NEUTROPHILS # (AUTO) 6.7 K/uL (1.8-7.7); PLATELET COUNT (AUTO) 383 K/uL (150-450); RED BLOOD CELL COUNT(AUTO) 3.86 MIL/uL (4.00-5.20); RED CELL DISTRIBUTION WIDTH 15.4 % (11.5-14.5)
[2021-12-20 07:41] LABS: ALANINE AMINOTRANSFERASE 29 U/L (12-78); ALBUMIN 2.6 g/dL (3.4-5.0); ALKALINE PHOSPHATASE 59 U/L (46-116); ANION GAP 6 mmol/L (8-16); ASPARTATE AMINOTRANSFERASE 12 U/L (15-37); BILIRUBIN,TOTAL 0.4 mg/dL (0.1-1.0); CALCIUM, TOTAL 9.3 mg/dL (8.8-10.5); CARBON DIOXIDE 29 mmol/L (22-29); CHLORIDE 103 mmol/L (98-107); CREATININE 0.61 mg/dL (0.60-1.30); GLUCOSE,RANDOM 80 mg/dL (70-110); POTASSIUM 4.2 mmol/L (3.5-5.1); SODIUM SERUM 138 mmol/L (136-145); TOTAL PROTEIN, SERUM 6.7 g/dL (6.4-8.2); UREA NITROGEN, BLOOD 15 mg/dL (7-18)
[2021-12-20 07:42] LABS: GLOMERULAR FILTR. RATE CALC > 60 mL/min (>60)
[2021-12-20] MEDS: RisperiDONE 3 MG TABLET PO SCH (08:20)
[2021-12-20] MEDS: PANTOPRAZOLE SODIUM 40 MG DR TABLET PO SCH (08:20)
[2021-12-20] MEDS: CLINDAMYCIN HCL 300 MG CAPSULE PO SCH (08:21)
[2021-12-20 08:28] VITALS: BP 124/68
[2021-12-20] MEDS ORDERED: CLIN300C58 PO (09:34)
[2021-12-20] MEDS ORDERED: PANT-31 PO (09:36)
[2021-12-20] MEDS ORDERED: RISP3TAB35 PO (09:38)
[2021-12-20] MEDS ORDERED: ACET-2247 PO (09:40)
[2021-12-20] MEDS ORDERED: AUD NEB (09:41)
[2021-12-20] MEDS ORDERED: LORA-1001 PO (09:43)
[2021-12-20] MEDS ORDERED: IBUP-2070 PO (09:43)
[2021-12-20] MEDS ORDERED: MAGN-169 PO (09:45)
== END 2021-12-20 12:42 | DRG 872 ==
LOC: EMS 10:06 → 5S 23:23 → 6S 12-15 11:15 → 6N 12-16 18:23
PROVIDERS: ADMIT Internal Medicine; ATTEND Hospitalist
DX: A41.9 Sepsis, unspecified organism (principal); J36 Peritonsillar abscess; E87.1 Hypo-osmolality and hyponatremia; Z79.899 Other long term (current) drug therapy; Z20.822 Contact with and (suspected) exposure to COVID-19; E66.9 Obesity, unspecified; F41.9 Anxiety disorder, unspecified; E87.6 Hypokalemia; I10 Essential (primary) hypertension; F25.0 Schizoaffective disorder, bipolar type; R13.10 Dysphagia, unspecified; Z78.1 Physical restraint status; Z91.199 Patient's noncompliance with other medical treatment and regimen due to unspecified reason; Z88.0 Allergy status to penicillin; Z88.2 Allergy status to sulfonamides; Z68.33 Body mass index [BMI] 33.0-33.9, adult
CPT/HCPCS: 70491; 71045; 80053; 81001; 83605; 84703; 85025; 87040; 87804; 93005; 94640; 99285; J1100; J1644; J3490; J7030; J7050; Q9967; 36415-L1; 36415-TC; J7613

== ENCOUNTER 2021-12-20 09:28 | Inpatient (IN) | payer MEDICARE, MEDICAID ==
[~2021-12-20] VITALS: Ht 160 cm; Wt 83.9 kg
[2021-12-20] MEDS ORDERED: CLIN300C58 PO (09:34)
[2021-12-20] MEDS ORDERED: PANT-31 PO (09:36)
[2021-12-20] MEDS ORDERED: RISP3TAB35 PO (09:38)
[2021-12-20] MEDS ORDERED: ACET-2247 PO (09:40)
[2021-12-20] MEDS ORDERED: AUD NEB (09:41)
[2021-12-20] MEDS ORDERED: LORA-1001 PO (09:43)
[2021-12-20] MEDS ORDERED: IBUP-2070 PO (09:43)
[2021-12-20] MEDS ORDERED: MAGN-169 PO (09:45)
[2021-12-20 13:30] VITALS: BP 127/72
[2021-12-20] MEDS ORDERED: INFLUENZA VIRUS VACCINE QVS 2022-23 (6MO+)/PF 60 MCG/0.5 ML SYRINGE IM. ONE (14:15)
[2021-12-20] MEDS ORDERED: ALBUTEROL SULFATE HFA 90 MCG/PUFF 8 GM INHALER IH PRN ×2 (15:30)
[2021-12-20] MEDS ORDERED: CLINDAMYCIN HCL 300 MG CAPSULE PO SCH (16:00)
[2021-12-20 18:00] VITALS: BP 130/78
[2021-12-20] MEDS: RisperiDONE 3 MG TABLET PO SCH (20:17)
[2021-12-20] MEDS: LORazepam 2 MG TABLET PO PRN (20:28)
[2021-12-20 20:32] VITALS: BP 127/72
[2021-12-20] MEDS: CLINDAMYCIN HCL 300 MG CAPSULE PO SCH (21:08)
[2021-12-20] MEDS: ZOLPIDEM TARTRATE 10 MG TABLET PO PRN (21:10)
[2021-12-20] MEDS: HALOPERIDOL 5 MG TABLET PO PRN (22:23)
[2021-12-21] MEDS: CLINDAMYCIN HCL 300 MG CAPSULE PO SCH ×3 (00:21→16:06)
[2021-12-21] MEDS: HALOPERIDOL 5 MG TABLET PO PRN ×2 (06:20→14:35)
[2021-12-21] MEDS ORDERED: DOCUSATE SODIUM 100 MG CAPSULE PO PRN (06:30)
[2021-12-21] MEDS ORDERED: NICOTINE 14 MG/24 HOUR PATCH TD PRN (06:30)
[2021-12-21] MEDS ORDERED: MAGNESIUM HYDROXIDE SUSPENSION 30 ML UDCUP PO PRN (06:30)
[2021-12-21] MEDS ORDERED: MAG HYDROX/AL HYDROX/SIMETH ES 30 ML SUSPENSION UDCUP PO PRN (06:30)
[2021-12-21] MEDS ORDERED: CloNIDine HCL 0.1 MG TABLET PO PRN (06:30)
[2021-12-21] MEDS ORDERED: ALBUTEROL SULFATE 2.5 MG/0.5 ML NEB SOLUTION NEB PRN (06:30)
[2021-12-21] MEDS ORDERED: GuaiFENesin/D-METHORPHAN [SUGAR-FREE] 200-20MG/10 ML SYRUP UDCUP PO PRN (06:30)
[2021-12-21] MEDS ORDERED: ONDANSETRON HCL 4 MG TABLET PO PRN (06:30)
[2021-12-21] MEDS ORDERED: LOPERAMIDE HCL 2 MG CAPSULE PO PRN (06:30)
[2021-12-21] MEDS ORDERED: PETROLATUM,WHITE 28 GM JELLY TP PRN (06:30)
[2021-12-21 07:16] LABS: BASOPHILS % (AUTO) 0.5 % (0.0-2.0); EOSINOPHILS % (AUTO) 0.9 % (1.0-6.0); HEMATOCRIT 33.6 % (36-46); LYMPHOCYTES # (AUTO) 3.6 K/uL (1.0-4.8); LYMPHOCYTES % (AUTO) 29.3 % (22.0-44.0); MEAN CORPUSCULAR HEMOGLOBIN 27.4 pg (26.0-34.0); MEAN CORPUSCULAR HGB CONC 32.8 G/dL (31.0-37.0); MEAN CORPUSCULAR VOLUME 83 fL (80-100); MONOCYTES # (AUTO) 0.8 K/uL (0.1-1.0); MONOCYTES % (AUTO) 6.3 % (2.0-9.0); NEUTROPHILS # (AUTO) 7.7 K/uL (1.8-7.7); PLATELET COUNT (AUTO) 411 K/uL (150-450); RED BLOOD CELL COUNT(AUTO) 4.03 MIL/uL (4.00-5.20); RED CELL DISTRIBUTION WIDTH 15.5 % (11.5-14.5)
[2021-12-21 07:33] LABS: HEMOGLOBIN A1C 5.7 % (3.8-5.6)
[2021-12-21 07:53] LABS: ALANINE AMINOTRANSFERASE 28 U/L (12-78); ALKALINE PHOSPHATASE 74 U/L (46-116); ANION GAP 5 mmol/L (8-16); ASPARTATE AMINOTRANSFERASE 16 U/L (15-37); BILIRUBIN,TOTAL 0.5 mg/dL (0.1-1.0); CALCIUM, TOTAL 9.5 mg/dL (8.8-10.5); CARBON DIOXIDE 31 mmol/L (22-29); CHLORIDE 100 mmol/L (98-107); CHOL/HDL RATIO 2.6 (3.9-5.7); CHOLESTEROL 157 mg/dL (131-200); FREE T4 (FREE THYROXINE) 1.26 ng/dL (0.76-1.46); GLUCOSE,RANDOM 81 mg/dL (70-110); HCG,QUANTITATIVE < 1 mIU/mL (0-6); HDL CHOLESTEROL 61 mg/dL (40-60); LDL CHOL (CALC.) 80 mg/dL (0-130); SODIUM SERUM 136 mmol/L (136-145); THYROID STIMULATING HORMONE 3.41 uIU/mL (0.36-3.74); TOTAL PROTEIN, SERUM 7.4 g/dL (6.4-8.2); TRIGLYCERIDES 80 mg/dL (15-150); UREA NITROGEN, BLOOD 16 mg/dL (7-18)
[2021-12-21 07:54] LABS: GLOMERULAR FILTR. RATE CALC > 60 mL/min (>60)
[2021-12-21] MEDS ORDERED: CLINDAMYCIN HCL 300 MG CAPSULE PO SCH (08:00)
[2021-12-21] MEDS: LORazepam 2 MG TABLET PO PRN ×3 (08:04→19:52)
[2021-12-21] MEDS: RisperiDONE 3 MG TABLET PO SCH ×2 (08:04→20:32)
[2021-12-21] MEDS: PANTOPRAZOLE SODIUM 40 MG DR TABLET PO SCH (08:04)
[2021-12-21 11:28] VITALS: BP 137/79
[2021-12-21] MEDS: IBUPROFEN 400 MG TABLET PO PRN (14:49)
[2021-12-21 20:03] VITALS: BP 120/79
[2021-12-22] MEDS: CLINDAMYCIN HCL 300 MG CAPSULE PO SCH ×4 (07:55→23:37)
[2021-12-22] MEDS: HALOPERIDOL 5 MG TABLET PO PRN ×2 (07:55→16:02)
[2021-12-22] MEDS: LORazepam 2 MG TABLET PO PRN ×2 (07:55→16:02)
[2021-12-22] MEDS: PANTOPRAZOLE SODIUM 40 MG DR TABLET PO SCH (08:00)
[2021-12-22] MEDS: RisperiDONE 3 MG TABLET PO SCH ×2 (08:00→20:31)
[2021-12-22] MEDS: ZOLPIDEM TARTRATE 10 MG TABLET PO PRN (20:30)
[2021-12-22 22:21] VITALS: BP 111/87
[2021-12-23 02:29] VITALS: BP 135/72
[2021-12-23] MEDS: LORazepam 2 MG TABLET PO PRN ×3 (02:51→21:29)
[2021-12-23] MEDS: HALOPERIDOL 5 MG TABLET PO PRN ×2 (02:51→21:29)
[2021-12-23] MEDS: IBUPROFEN 400 MG TABLET PO PRN ×3 (02:51→20:52)
[2021-12-23 08:15] VITALS: BP 128/67
[2021-12-23] MEDS: RisperiDONE 3 MG TABLET PO SCH ×2 (08:24→20:21)
[2021-12-23] MEDS: CLINDAMYCIN HCL 300 MG CAPSULE PO SCH ×3 (08:24→23:35)
[2021-12-23] MEDS: PANTOPRAZOLE SODIUM 40 MG DR TABLET PO SCH (08:24)
[2021-12-23 20:04] VITALS: BP 126/78
[2021-12-24] MEDS: CLINDAMYCIN HCL 300 MG CAPSULE PO SCH ×3 (08:11→23:38)
[2021-12-24 08:12] VITALS: BP 134/66
[2021-12-24] MEDS: RisperiDONE 3 MG TABLET PO SCH ×2 (08:31→20:27)
[2021-12-24] MEDS: LORazepam 2 MG TABLET PO PRN ×2 (08:32→20:09)
[2021-12-24] MEDS: PANTOPRAZOLE SODIUM 40 MG DR TABLET PO SCH (08:32)
[2021-12-24 13:42] VITALS: BP 112/66
[2021-12-24] MEDS: IBUPROFEN 400 MG TABLET PO PRN (13:48)
[2021-12-24 20:10] VITALS: BP 116/79
[2021-12-24] MEDS: ZOLPIDEM TARTRATE 10 MG TABLET PO PRN (21:14)
[2021-12-24] MEDS: ALBUTEROL SULFATE HFA 90 MCG/PUFF 8 GM INHALER IH PRN (21:24)
[2021-12-25 03:55] VITALS: BP 109/90
[2021-12-25] MEDS: LORazepam 2 MG TABLET PO PRN ×4 (03:59→21:05)
[2021-12-25] MEDS: HALOPERIDOL 5 MG TABLET PO PRN ×4 (04:00→21:05)
[2021-12-25] MEDS: IBUPROFEN 400 MG TABLET PO PRN (04:00)
[2021-12-25 08:01] VITALS: BP 118/62
[2021-12-25] MEDS: RisperiDONE 3 MG TABLET PO SCH ×2 (08:19→21:05)
[2021-12-25] MEDS: CLINDAMYCIN HCL 300 MG CAPSULE PO SCH ×3 (08:19→23:51)
[2021-12-25] MEDS: PANTOPRAZOLE SODIUM 40 MG DR TABLET PO SCH (08:20)
[2021-12-25] MEDS: ACETAMINOPHEN 325 MG TABLET PO PRN (08:55)
[2021-12-25 09:22] LABS: GLUCOMETER DEV NAME(LOC) POC.BV
[2021-12-25 20:03] VITALS: BP 125/72
[2021-12-25] MEDS: ZOLPIDEM TARTRATE 10 MG TABLET PO PRN (23:51)
[2021-12-26 04:32] VITALS: BP 130/81
[2021-12-26] MEDS: IBUPROFEN 400 MG TABLET PO PRN (04:32)
[2021-12-26] MEDS: ALBUTEROL SULFATE HFA 90 MCG/PUFF 8 GM INHALER IH PRN (04:33)
[2021-12-26 07:58] LABS: BASOPHILS % (AUTO) 0.3 % (0.0-2.0); EOSINOPHILS % (AUTO) 0.6 % (1.0-6.0); HEMATOCRIT 35.9 % (36-46); HEMOGLOBIN 11.6 g/dL (12.0-16.0); LYMPHOCYTES # (AUTO) 2.7 K/uL (1.0-4.8); LYMPHOCYTES % (AUTO) 27.8 % (22.0-44.0); MEAN CORPUSCULAR HEMOGLOBIN 27.1 pg (26.0-34.0); MEAN CORPUSCULAR HGB CONC 32.2 G/dL (31.0-37.0); MEAN CORPUSCULAR VOLUME 84 fL (80-100); MONOCYTES # (AUTO) 0.6 K/uL (0.1-1.0); MONOCYTES % (AUTO) 5.9 % (2.0-9.0); NEUTROPHILS # (AUTO) 6.5 K/uL (1.8-7.7); NEUTROPHILS % (AUTO) 65.4 % (40.0-70.0); PLATELET COUNT (AUTO) 389 K/uL (150-450); RED BLOOD CELL COUNT(AUTO) 4.27 MIL/uL (4.00-5.20); RED CELL DISTRIBUTION WIDTH 15.5 % (11.5-14.5)
[2021-12-26] MEDS: RisperiDONE 3 MG TABLET PO SCH ×2 (08:04→20:29)
[2021-12-26] MEDS: HALOPERIDOL 5 MG TABLET PO PRN (08:04)
[2021-12-26] MEDS: PANTOPRAZOLE SODIUM 40 MG DR TABLET PO SCH (08:04)
[2021-12-26] MEDS: CLINDAMYCIN HCL 300 MG CAPSULE PO SCH ×2 (08:04→16:12)
[2021-12-26] MEDS: LORazepam 2 MG TABLET PO PRN ×2 (08:04→18:56)
[2021-12-26 08:28] VITALS: BP 130/77
[2021-12-26 20:05] VITALS: BP 136/77
[2021-12-27] MEDS: CLINDAMYCIN HCL 300 MG CAPSULE PO SCH ×3 (00:23→16:04)
[2021-12-27] MEDS: IBUPROFEN 400 MG TABLET PO PRN ×2 (00:54→20:11)
[2021-12-27 04:29] VITALS: BP 115/74
[2021-12-27] MEDS: LORazepam 2 MG TABLET PO PRN (08:15)
[2021-12-27] MEDS: HALOPERIDOL 5 MG TABLET PO PRN ×2 (08:15→20:12)
[2021-12-27] MEDS: RisperiDONE 3 MG TABLET PO SCH ×2 (08:15→20:13)
[2021-12-27] MEDS: PANTOPRAZOLE SODIUM 40 MG DR TABLET PO SCH (08:15)
[2021-12-27 08:16] VITALS: BP 123/69
[2021-12-27] MEDS ORDERED: HALOPERIDOL LACTATE 5 MG/ML VIAL IM ONE (13:15)
[2021-12-27] MEDS ORDERED: LORazepam 2 MG/ML VIAL IM ONE (13:15)
[2021-12-27] MEDS ORDERED: DiphenhydrAMINE HCL 50 MG/ML VIAL IM ONE (13:15)
[2021-12-27 20:00] VITALS: BP 109/76
[2021-12-27] MEDS: ALBUTEROL SULFATE HFA 90 MCG/PUFF 8 GM INHALER IH PRN (20:21)
[2021-12-28] MEDS: CLINDAMYCIN HCL 300 MG CAPSULE PO SCH ×3 (00:06→16:02)
[2021-12-28 08:02] VITALS: BP 110/82
[2021-12-28] MEDS: RisperiDONE 3 MG TABLET PO SCH ×2 (08:10→20:07)
[2021-12-28] MEDS: PANTOPRAZOLE SODIUM 40 MG DR TABLET PO SCH (08:11)
[2021-12-28] MEDS: LORazepam 2 MG TABLET PO PRN ×2 (08:11→18:54)
[2021-12-28] MEDS: HALOPERIDOL 5 MG TABLET PO PRN (08:11)
[2021-12-28] MEDS: ALBUTEROL SULFATE HFA 90 MCG/PUFF 8 GM INHALER IH PRN (18:53)
[2021-12-28 20:30] VITALS: BP 140/86
[2021-12-29] MEDS: CLINDAMYCIN HCL 300 MG CAPSULE PO SCH ×3 (00:02→16:14)
[2021-12-29] MEDS: HALOPERIDOL 5 MG TABLET PO PRN (06:30)
[2021-12-29] MEDS: RisperiDONE 3 MG TABLET PO SCH ×2 (09:19→20:30)
[2021-12-29] MEDS: PANTOPRAZOLE SODIUM 40 MG DR TABLET PO SCH (09:19)
[2021-12-29 10:07] VITALS: BP 108/66
[2021-12-29] MEDS: LORazepam 2 MG TABLET PO PRN (18:28)
[2021-12-29 20:00] VITALS: BP 114/67
[2021-12-30] MEDS: CLINDAMYCIN HCL 300 MG CAPSULE PO SCH ×3 (00:18→16:58)
[2021-12-30] MEDS: RisperiDONE 3 MG TABLET PO SCH ×2 (08:24→20:03)
[2021-12-30] MEDS: PANTOPRAZOLE SODIUM 40 MG DR TABLET PO SCH (08:24)
[2021-12-30] MEDS: ALBUTEROL SULFATE HFA 90 MCG/PUFF 8 GM INHALER IH PRN (08:29)
[2021-12-30 09:16] VITALS: BP 118/81
[2021-12-30] MEDS: ACETAMINOPHEN 325 MG TABLET PO PRN (17:12)
[2021-12-30 20:00] VITALS: BP 120/76
[2021-12-30] MEDS: LORazepam 2 MG TABLET PO PRN (20:03)
[2021-12-31 08:30] VITALS: BP 105/65
[2021-12-31] MEDS: PANTOPRAZOLE SODIUM 40 MG DR TABLET PO SCH (08:30)
[2021-12-31] MEDS: CLINDAMYCIN HCL 300 MG CAPSULE PO SCH ×3 (08:30→16:13)
[2021-12-31] MEDS: RisperiDONE 3 MG TABLET PO SCH ×2 (08:30→20:12)
[2021-12-31 20:01] VITALS: BP 126/77
[2022-01-01] MEDS: HALOPERIDOL 5 MG TABLET PO PRN (03:42)
[2022-01-01] MEDS: LORazepam 2 MG TABLET PO PRN (03:42)
[2022-01-01] MEDS: CLINDAMYCIN HCL 300 MG CAPSULE PO SCH ×3 (08:04→16:19)
[2022-01-01 08:21] VITALS: BP 116/66
[2022-01-01] MEDS: PANTOPRAZOLE SODIUM 40 MG DR TABLET PO SCH (08:25)
[2022-01-01] MEDS: RisperiDONE 3 MG TABLET PO SCH ×2 (08:25→20:01)
[2022-01-01 12:50] LABS: GLUCOMETER DEV NAME(LOC) POC.BV
[2022-01-01 21:05] VITALS: BP 128/73
[2022-01-01] MEDS: IBUPROFEN 400 MG TABLET PO PRN (22:02)
[2022-01-01] MEDS: ZOLPIDEM TARTRATE 10 MG TABLET PO PRN (22:02)
[2022-01-02 08:23] VITALS: BP 142/78
[2022-01-02] MEDS: RisperiDONE 3 MG TABLET PO SCH ×2 (08:45→20:11)
[2022-01-02] MEDS: PANTOPRAZOLE SODIUM 40 MG DR TABLET PO SCH (08:45)
[2022-01-02] MEDS: ALBUTEROL SULFATE HFA 90 MCG/PUFF 8 GM INHALER IH PRN (11:16)
[2022-01-02 20:02] VITALS: BP 120/79
[2022-01-02] MEDS: HALOPERIDOL 5 MG TABLET PO PRN (20:55)
[2022-01-02] MEDS: ZOLPIDEM TARTRATE 10 MG TABLET PO PRN (20:55)
[2022-01-03] MEDS: PANTOPRAZOLE SODIUM 40 MG DR TABLET PO SCH (09:08)
[2022-01-03] MEDS: RisperiDONE 3 MG TABLET PO SCH ×2 (09:08→20:17)
[2022-01-03 09:30] VITALS: BP 130/79
[2022-01-03 11:53] VITALS: BP 130/73
[2022-01-03] MEDS: LORazepam 2 MG TABLET PO PRN (11:57)
[2022-01-03] MEDS: HALOPERIDOL 5 MG TABLET PO PRN (20:17)
[2022-01-03] MEDS: ZOLPIDEM TARTRATE 10 MG TABLET PO PRN (20:17)
[2022-01-03 20:21] VITALS: BP 112/63
[2022-01-04] MEDS: PANTOPRAZOLE SODIUM 40 MG DR TABLET PO SCH (07:57)
[2022-01-04] MEDS: RisperiDONE 3 MG TABLET PO SCH ×2 (07:57→20:27)
[2022-01-04 08:32] VITALS: BP 126/76
[2022-01-04] MEDS: DIVALPROEX SODIUM 500 MG DR TABLET PO SCH ×2 (14:29→20:27)
[2022-01-04] MEDS: ARIPiprazole 10 MG TABLET PO SCH (14:29)
[2022-01-04 20:15] VITALS: BP 145/80
[2022-01-04] MEDS: ZOLPIDEM TARTRATE 10 MG TABLET PO PRN (22:41)
[2022-01-04] MEDS: HALOPERIDOL 5 MG TABLET PO PRN (22:41)
[2022-01-04] MEDS: IBUPROFEN 400 MG TABLET PO PRN (22:55)
[2022-01-04 22:58] VITALS: BP 141/96
[2022-01-05] MEDS: ARIPiprazole 10 MG TABLET PO SCH (08:08)
[2022-01-05] MEDS: PANTOPRAZOLE SODIUM 40 MG DR TABLET PO SCH (08:08)
[2022-01-05] MEDS: DIVALPROEX SODIUM 500 MG DR TABLET PO SCH ×2 (08:08→21:00)
[2022-01-05] MEDS: HALOPERIDOL 5 MG TABLET PO PRN (08:09)
[2022-01-05] MEDS: RisperiDONE 3 MG TABLET PO SCH ×2 (08:09→21:00)
[2022-01-05 08:40] VITALS: BP 134/83
[2022-01-05] MEDS: IBUPROFEN 400 MG TABLET PO PRN (10:11)
[2022-01-05] MEDS: LORazepam 2 MG TABLET PO PRN (17:01)
[2022-01-05] MEDS: ZOLPIDEM TARTRATE 10 MG TABLET PO PRN (21:00)
[2022-01-06 05:07] VITALS: BP 120/85
[2022-01-06 08:10] VITALS: BP 135/76
[2022-01-06] MEDS: ARIPiprazole 10 MG TABLET PO SCH (08:11)
[2022-01-06] MEDS: LORazepam 2 MG TABLET PO PRN ×3 (08:11→20:47)
[2022-01-06] MEDS: DIVALPROEX SODIUM 500 MG DR TABLET PO SCH ×2 (08:11→20:47)
[2022-01-06] MEDS: HALOPERIDOL 5 MG TABLET PO PRN ×2 (08:11→20:47)
[2022-01-06] MEDS: RisperiDONE 3 MG TABLET PO SCH ×2 (08:11→20:47)
[2022-01-06] MEDS: PANTOPRAZOLE SODIUM 40 MG DR TABLET PO SCH (08:11)
[2022-01-06 23:06] VITALS: BP 132/72
[2022-01-07] MEDS: HALOPERIDOL 5 MG TABLET PO PRN ×2 (02:07→13:30)
[2022-01-07] MEDS: ZOLPIDEM TARTRATE 10 MG TABLET PO PRN (02:08)
[2022-01-07] MEDS: RisperiDONE 3 MG TABLET PO SCH ×2 (08:34→20:56)
[2022-01-07] MEDS: DIVALPROEX SODIUM 500 MG DR TABLET PO SCH ×2 (08:34→20:56)
[2022-01-07] MEDS: ARIPiprazole 10 MG TABLET PO SCH (08:34)
[2022-01-07] MEDS: PANTOPRAZOLE SODIUM 40 MG DR TABLET PO SCH (08:34)
[2022-01-07] MEDS: IBUPROFEN 400 MG TABLET PO PRN ×2 (09:22→21:03)
[2022-01-07 09:39] VITALS: BP 123/69
[2022-01-07] MEDS: LORazepam 2 MG TABLET PO PRN (13:30)
[2022-01-07 20:48] VITALS: BP 122/75
[2022-01-08] MEDS: ZOLPIDEM TARTRATE 10 MG TABLET PO PRN ×2 (02:36→21:27)
[2022-01-08] MEDS: HALOPERIDOL 5 MG TABLET PO PRN ×2 (02:37→13:39)
[2022-01-08 02:40] VITALS: BP 125/86
[2022-01-08 08:10] VITALS: BP 117/75
[2022-01-08] MEDS: ARIPiprazole 10 MG TABLET PO SCH (08:41)
[2022-01-08] MEDS: PANTOPRAZOLE SODIUM 40 MG DR TABLET PO SCH (08:41)
[2022-01-08] MEDS: RisperiDONE 3 MG TABLET PO SCH ×2 (08:41→20:51)
[2022-01-08] MEDS: DIVALPROEX SODIUM 500 MG DR TABLET PO SCH ×2 (08:41→20:51)
[2022-01-08] MEDS: LORazepam 2 MG TABLET PO PRN (13:39)
[2022-01-08 20:28] VITALS: BP 110/72
[2022-01-09 08:01] VITALS: BP 122/70
[2022-01-09] MEDS: ARIPiprazole 10 MG TABLET PO SCH (08:51)
[2022-01-09] MEDS: RisperiDONE 3 MG TABLET PO SCH ×2 (08:51→20:06)
[2022-01-09] MEDS: DIVALPROEX SODIUM 500 MG DR TABLET PO SCH ×2 (08:51→20:06)
[2022-01-09] MEDS: PANTOPRAZOLE SODIUM 40 MG DR TABLET PO SCH (08:51)
[2022-01-09] MEDS: LORazepam 2 MG TABLET PO PRN ×2 (08:55→21:06)
[2022-01-09] MEDS ORDERED: PALIPERIDONE PALMITATE 234 MG/1.5 ML SYRINGE IM ONE (09:45)
[2022-01-09 19:59] VITALS: BP 112/63
[2022-01-10 04:03] VITALS: BP 131/68
[2022-01-10] MEDS: DIVALPROEX SODIUM 500 MG DR TABLET PO SCH ×2 (08:04→20:33)
[2022-01-10] MEDS: ARIPiprazole 10 MG TABLET PO SCH (08:04)
[2022-01-10] MEDS: PANTOPRAZOLE SODIUM 40 MG DR TABLET PO SCH (08:04)
[2022-01-10] MEDS: RisperiDONE 3 MG TABLET PO SCH ×2 (08:04→20:33)
[2022-01-10] MEDS: LORazepam 2 MG TABLET PO PRN (08:17)
[2022-01-10 08:53] VITALS: BP 127/70
[2022-01-10 17:29] VITALS: BP 130/65
[2022-01-10] MEDS: IBUPROFEN 400 MG TABLET PO PRN (17:29)
[2022-01-10 20:05] VITALS: BP 128/62
[2022-01-10] MEDS: HALOPERIDOL 5 MG TABLET PO PRN (23:20)
[2022-01-10] MEDS: ZOLPIDEM TARTRATE 10 MG TABLET PO PRN (23:20)
[2022-01-10 23:21] VITALS: BP 115/66
[2022-01-11] MEDS: ARIPiprazole 10 MG TABLET PO SCH (08:05)
[2022-01-11] MEDS: RisperiDONE 3 MG TABLET PO SCH ×2 (08:05→20:00)
[2022-01-11] MEDS: DIVALPROEX SODIUM 500 MG DR TABLET PO SCH ×2 (08:05→20:00)
[2022-01-11] MEDS: PANTOPRAZOLE SODIUM 40 MG DR TABLET PO SCH (08:05)
[2022-01-11 08:47] VITALS: BP 119/57
[2022-01-11] MEDS: LORazepam 2 MG TABLET PO PRN (10:32)
[2022-01-11 12:36] LABS: GLUCOMETER DEV NAME(LOC) POC.BV
[2022-01-11 20:00] VITALS: BP 116/66
[2022-01-11] MEDS: HALOPERIDOL 5 MG TABLET PO PRN (20:35)
[2022-01-11] MEDS: ZOLPIDEM TARTRATE 10 MG TABLET PO PRN (20:35)
[2022-01-12] MEDS: RisperiDONE 3 MG TABLET PO SCH ×2 (08:03→20:10)
[2022-01-12] MEDS: ARIPiprazole 10 MG TABLET PO SCH (08:03)
[2022-01-12] MEDS: HALOPERIDOL 5 MG TABLET PO PRN (08:03)
[2022-01-12] MEDS: PANTOPRAZOLE SODIUM 40 MG DR TABLET PO SCH (08:03)
[2022-01-12] MEDS: DIVALPROEX SODIUM 500 MG DR TABLET PO SCH ×2 (08:03→20:10)
[2022-01-12] MEDS: LORazepam 2 MG TABLET PO PRN ×2 (08:04→21:09)
[2022-01-12 08:36] VITALS: BP 117/78
[2022-01-12 20:32] VITALS: BP 112/62
[2022-01-12] MEDS: ALBUTEROL SULFATE HFA 90 MCG/PUFF 8 GM INHALER IH PRN (21:05)
[2022-01-12] MEDS: ZOLPIDEM TARTRATE 10 MG TABLET PO PRN (21:09)
[2022-01-13 08:23] VITALS: BP 102/62
[2022-01-13] MEDS: RisperiDONE 3 MG TABLET PO SCH ×2 (08:35→20:04)
[2022-01-13] MEDS: PANTOPRAZOLE SODIUM 40 MG DR TABLET PO SCH (08:35)
[2022-01-13] MEDS: DIVALPROEX SODIUM 500 MG DR TABLET PO SCH ×2 (08:35→20:05)
[2022-01-13] MEDS: ARIPiprazole 10 MG TABLET PO SCH (08:35)
[2022-01-13] MEDS ORDERED: PALIPERIDONE PALMITATE 156 MG/ML SYRINGE IM ONE (09:00)
[2022-01-13] MEDS: HALOPERIDOL 5 MG TABLET PO PRN (12:04)
[2022-01-13] MEDS: LORazepam 2 MG TABLET PO PRN (12:04)
[2022-01-13 20:00] VITALS: BP 113/71
[2022-01-13] MEDS: ZOLPIDEM TARTRATE 10 MG TABLET PO PRN (20:09)
[2022-01-14] MEDS: IBUPROFEN 400 MG TABLET PO PRN (02:36)
[2022-01-14 08:06] VITALS: BP 117/68
[2022-01-14] MEDS: RisperiDONE 3 MG TABLET PO SCH ×2 (08:47→20:05)
[2022-01-14] MEDS: ARIPiprazole 10 MG TABLET PO SCH (08:47)
[2022-01-14] MEDS: PANTOPRAZOLE SODIUM 40 MG DR TABLET PO SCH (08:47)
[2022-01-14] MEDS: DIVALPROEX SODIUM 500 MG DR TABLET PO SCH ×2 (08:47→20:05)
[2022-01-14] MEDS: ACETAMINOPHEN 325 MG TABLET PO PRN (09:44)
[2022-01-14] MEDS: LORazepam 2 MG TABLET PO PRN ×2 (09:44→18:25)
[2022-01-14 20:00] VITALS: BP 121/68
[2022-01-14] MEDS: ZOLPIDEM TARTRATE 10 MG TABLET PO PRN (20:05)
[2022-01-15] MEDS: IBUPROFEN 400 MG TABLET PO PRN ×3 (02:53→17:38)
[2022-01-15] MEDS: DIVALPROEX SODIUM 500 MG DR TABLET PO SCH ×2 (08:22→21:44)
[2022-01-15] MEDS: RisperiDONE 3 MG TABLET PO SCH ×2 (08:22→21:44)
[2022-01-15] MEDS: ARIPiprazole 10 MG TABLET PO SCH (08:22)
[2022-01-15] MEDS: LORazepam 2 MG TABLET PO PRN ×2 (08:22→17:38)
[2022-01-15] MEDS: PANTOPRAZOLE SODIUM 40 MG DR TABLET PO SCH (08:22)
[2022-01-15] MEDS: HALOPERIDOL 5 MG TABLET PO PRN ×3 (08:22→21:46)
[2022-01-15 08:23] VITALS: BP 122/68
[2022-01-15 20:05] VITALS: BP 126/69
[2022-01-15] MEDS: ZOLPIDEM TARTRATE 10 MG TABLET PO PRN (21:44)
[2022-01-16] MEDS: ARIPiprazole 10 MG TABLET PO SCH (08:25)
[2022-01-16] MEDS: PANTOPRAZOLE SODIUM 40 MG DR TABLET PO SCH (08:25)
[2022-01-16] MEDS: RisperiDONE 3 MG TABLET PO SCH ×2 (08:25→21:35)
[2022-01-16] MEDS: LORazepam 2 MG TABLET PO PRN ×2 (08:25→13:34)
[2022-01-16] MEDS: HALOPERIDOL 5 MG TABLET PO PRN ×3 (08:25→21:35)
[2022-01-16 09:42] VITALS: BP 116/72
[2022-01-16] MEDS: DIVALPROEX SODIUM 500 MG DR TABLET PO SCH ×2 (10:24→21:35)
[2022-01-16] MEDS: IBUPROFEN 400 MG TABLET PO PRN (10:24)
[2022-01-16] MEDS: ACETAMINOPHEN 325 MG TABLET PO PRN (13:34)
[2022-01-16 20:27] VITALS: BP 127/84
[2022-01-16] MEDS: ZOLPIDEM TARTRATE 10 MG TABLET PO PRN (21:35)
[2022-01-17 05:09] VITALS: BP 117/98
[2022-01-17] MEDS: IBUPROFEN 400 MG TABLET PO PRN ×2 (05:22→20:24)
[2022-01-17] MEDS: RisperiDONE 3 MG TABLET PO SCH ×2 (08:00→20:23)
[2022-01-17] MEDS: DIVALPROEX SODIUM 500 MG DR TABLET PO SCH ×2 (08:01→20:24)
[2022-01-17] MEDS: ARIPiprazole 10 MG TABLET PO SCH (08:01)
[2022-01-17] MEDS: PANTOPRAZOLE SODIUM 40 MG DR TABLET PO SCH (08:01)
[2022-01-17] MEDS: HALOPERIDOL 5 MG TABLET PO PRN (08:01)
[2022-01-17] MEDS: LORazepam 2 MG TABLET PO PRN ×2 (08:01→20:24)
[2022-01-17 08:31] VITALS: BP 118/85
[2022-01-17 20:00] VITALS: BP 111/76
[2022-01-17] MEDS: ZOLPIDEM TARTRATE 10 MG TABLET PO PRN (20:25)
[2022-01-18] MEDS: LORazepam 2 MG TABLET PO PRN ×2 (08:18→20:56)
[2022-01-18] MEDS: HALOPERIDOL 5 MG TABLET PO PRN ×2 (08:18→20:56)
[2022-01-18] MEDS: RisperiDONE 3 MG TABLET PO SCH ×2 (08:18→20:02)
[2022-01-18] MEDS: ARIPiprazole 10 MG TABLET PO SCH (08:18)
[2022-01-18] MEDS: PANTOPRAZOLE SODIUM 40 MG DR TABLET PO SCH (08:18)
[2022-01-18] MEDS: DIVALPROEX SODIUM 500 MG DR TABLET PO SCH ×2 (08:18→20:01)
[2022-01-18 08:37] VITALS: BP 115/80
[2022-01-18 09:26] LABS: GLUCOMETER DEV NAME(LOC) POC.BV
[2022-01-18 17:30] VITALS: BP 109/60
[2022-01-18] MEDS: IBUPROFEN 400 MG TABLET PO PRN (17:30)
[2022-01-18] MEDS: ALBUTEROL SULFATE HFA 90 MCG/PUFF 8 GM INHALER IH PRN (17:33)
[2022-01-18] MEDS: ZOLPIDEM TARTRATE 10 MG TABLET PO PRN (20:02)
[2022-01-18 20:31] VITALS: BP 115/72
[2022-01-19] MEDS: ARIPiprazole 10 MG TABLET PO SCH (08:03)
[2022-01-19] MEDS: RisperiDONE 3 MG TABLET PO SCH ×2 (08:03→20:20)
[2022-01-19] MEDS: PANTOPRAZOLE SODIUM 40 MG DR TABLET PO SCH (08:03)
[2022-01-19] MEDS: DIVALPROEX SODIUM 500 MG DR TABLET PO SCH ×2 (08:03→20:20)
[2022-01-19] MEDS: HALOPERIDOL 5 MG TABLET PO PRN (11:24)
[2022-01-19] MEDS: LORazepam 2 MG TABLET PO PRN (11:24)
[2022-01-19 11:50] VITALS: BP 112/76
[2022-01-19 20:21] VITALS: BP 122/85
[2022-01-20] MEDS: LORazepam 2 MG TABLET PO PRN ×2 (01:12→08:18)
[2022-01-20] MEDS: HALOPERIDOL 5 MG TABLET PO PRN ×2 (01:12→08:18)
[2022-01-20 08:15] VITALS: BP 123/80
[2022-01-20] MEDS: ARIPiprazole 10 MG TABLET PO SCH (08:17)
[2022-01-20] MEDS: RisperiDONE 3 MG TABLET PO SCH ×2 (08:18→20:52)
[2022-01-20] MEDS: PANTOPRAZOLE SODIUM 40 MG DR TABLET PO SCH (08:18)
[2022-01-20] MEDS: DIVALPROEX SODIUM 500 MG DR TABLET PO SCH ×2 (08:18→20:52)
[2022-01-20] MEDS: ZOLPIDEM TARTRATE 10 MG TABLET PO PRN (22:40)
[2022-01-21] MEDS: ARIPiprazole 10 MG TABLET PO SCH (07:50)
[2022-01-21] MEDS: RisperiDONE 3 MG TABLET PO SCH ×2 (07:50→20:18)
[2022-01-21] MEDS: DIVALPROEX SODIUM 500 MG DR TABLET PO SCH ×6 (07:50→22:34)
[2022-01-21] MEDS: PANTOPRAZOLE SODIUM 40 MG DR TABLET PO SCH (07:51)
[2022-01-21 08:04] VITALS: BP 134/70
[2022-01-21] MEDS: LORazepam 2 MG TABLET PO PRN (09:08)
[2022-01-21] MEDS: ZOLPIDEM TARTRATE 10 MG TABLET PO PRN (20:18)
[2022-01-21 20:36] VITALS: BP 130/78
[2022-01-22 08:41] VITALS: BP 112/76
[2022-01-22] MEDS: DIVALPROEX SODIUM 500 MG DR TABLET PO SCH ×2 (09:29→20:16)
[2022-01-22] MEDS: RisperiDONE 3 MG TABLET PO SCH ×2 (09:29→20:16)
[2022-01-22] MEDS: ARIPiprazole 10 MG TABLET PO SCH (09:29)
[2022-01-22] MEDS: PANTOPRAZOLE SODIUM 40 MG DR TABLET PO SCH (09:30)
[2022-01-22] MEDS: LORazepam 2 MG TABLET PO PRN (17:28)
[2022-01-22] MEDS: HALOPERIDOL 5 MG TABLET PO PRN (17:28)
[2022-01-22 20:28] VITALS: BP 124/72
[2022-01-23] MEDS: LORazepam 2 MG TABLET PO PRN (08:06)
[2022-01-23] MEDS: RisperiDONE 3 MG TABLET PO SCH ×2 (08:06→20:12)
[2022-01-23] MEDS: HALOPERIDOL 5 MG TABLET PO PRN ×2 (08:06→21:01)
[2022-01-23] MEDS: ARIPiprazole 10 MG TABLET PO SCH (08:06)
[2022-01-23] MEDS: PANTOPRAZOLE SODIUM 40 MG DR TABLET PO SCH (08:06)
[2022-01-23] MEDS: DIVALPROEX SODIUM 500 MG DR TABLET PO SCH ×2 (08:06→20:12)
[2022-01-23 08:12] VITALS: BP 116/56
[2022-01-23 19:16] VITALS: BP 125/70
[2022-01-23] MEDS: IBUPROFEN 400 MG TABLET PO PRN (19:16)
[2022-01-23] MEDS: ZOLPIDEM TARTRATE 10 MG TABLET PO PRN (21:01)
[2022-01-23 21:50] VITALS: BP 121/68
[2022-01-24 04:04] VITALS: BP 124/72
[2022-01-24] MEDS: LORazepam 2 MG TABLET PO PRN ×3 (04:40→20:47)
[2022-01-24] MEDS: ARIPiprazole 10 MG TABLET PO SCH (08:28)
[2022-01-24] MEDS: RisperiDONE 3 MG TABLET PO SCH ×2 (08:28→20:21)
[2022-01-24] MEDS: DIVALPROEX SODIUM 500 MG DR TABLET PO SCH ×3 (08:28→20:20)
[2022-01-24] MEDS: PANTOPRAZOLE SODIUM 40 MG DR TABLET PO SCH (08:28)
[2022-01-24 08:59] VITALS: BP 116/67
[2022-01-24] MEDS: HALOPERIDOL 5 MG TABLET PO PRN ×2 (15:04→20:47)
[2022-01-24 20:25] VITALS: BP 118/70
[2022-01-25 07:03] LABS: APPEARANCE,URINE CLEAR (CLEAR); BILIRUBIN,URINE NEGATIVE (NEGATIVE); GLUCOSE, URINE (UA) NEGATIVE (NEGATIVE); KETONES,URINE NEGATIVE (NEGATIVE); LEUKOCYTE ESTERASE ,URINE NEGATIVE (NEGATIVE); NITRATE,URINE NEGATIVE (NEGATIVE); OCCULT BLOOD,URINE NEGATIVE (NEGATIVE); PROTEIN,URINE NEGATIVE (NEGATIVE); SPECIFIC GRAVITIY, URINE 1.016 (1.003-1.030); UROBILINOGEN,URINE <=1.0 mg/dL (<=1.0)
[2022-01-25 08:17] VITALS: BP 118/64
[2022-01-25] MEDS: ARIPiprazole 10 MG TABLET PO SCH (08:36)
[2022-01-25] MEDS: RisperiDONE 3 MG TABLET PO SCH (08:36)
[2022-01-25] MEDS: PANTOPRAZOLE SODIUM 40 MG DR TABLET PO SCH (08:36)
[2022-01-25] MEDS: DIVALPROEX SODIUM 500 MG DR TABLET PO SCH ×2 (08:38→20:25)
[2022-01-25 08:51] LABS: GLUCOMETER DEV NAME(LOC) POC.BV
[2022-01-25] MEDS: ZOLPIDEM TARTRATE 10 MG TABLET PO PRN (20:25)
[2022-01-25 20:51] VITALS: BP 135/89
[2022-01-25] MEDS: HALOPERIDOL 5 MG TABLET PO PRN (21:37)
[2022-01-25] MEDS: LORazepam 2 MG TABLET PO PRN (21:37)
[2022-01-26 08:22] VITALS: BP 116/69
[2022-01-26] MEDS: DIVALPROEX SODIUM 500 MG DR TABLET PO SCH ×2 (08:48→20:11)
[2022-01-26] MEDS: PANTOPRAZOLE SODIUM 40 MG DR TABLET PO SCH (08:48)
[2022-01-26] MEDS: ARIPiprazole 10 MG TABLET PO SCH (08:48)
[2022-01-26] MEDS: LORazepam 2 MG TABLET PO PRN (11:23)
[2022-01-26] MEDS: HALOPERIDOL 5 MG TABLET PO PRN ×2 (11:23→22:41)
[2022-01-26 20:00] VITALS: BP 112/68
[2022-01-26] MEDS: ZOLPIDEM TARTRATE 10 MG TABLET PO PRN (22:41)
[2022-01-27] MEDS: HALOPERIDOL 5 MG TABLET PO PRN (05:08)
[2022-01-27] MEDS: LORazepam 2 MG TABLET PO PRN ×2 (05:08→16:07)
[2022-01-27] MEDS: PANTOPRAZOLE SODIUM 40 MG DR TABLET PO SCH (08:16)
[2022-01-27] MEDS: ARIPiprazole 10 MG TABLET PO SCH (08:16)
[2022-01-27] MEDS: DIVALPROEX SODIUM 500 MG DR TABLET PO SCH ×2 (08:21→20:52)
[2022-01-27 08:35] VITALS: BP 105/64
[2022-01-27] MEDS: ALBUTEROL SULFATE HFA 90 MCG/PUFF 8 GM INHALER IH PRN (16:08)
[2022-01-27] MEDS: RisperiDONE 3 MG TABLET PO SCH (20:52)
[2022-01-27] MEDS ORDERED: RisperiDONE 3 MG TABLET PO SCH (23:55)
[2022-01-28 06:07] VITALS: BP 105/70
[2022-01-28] MEDS: ARIPiprazole 10 MG TABLET PO SCH (08:29)
[2022-01-28] MEDS: RisperiDONE 3 MG TABLET PO SCH ×2 (08:29→20:27)
[2022-01-28] MEDS: PANTOPRAZOLE SODIUM 40 MG DR TABLET PO SCH (08:30)
[2022-01-28] MEDS: LORazepam 2 MG TABLET PO PRN (08:30)
[2022-01-28] MEDS: DIVALPROEX SODIUM 500 MG DR TABLET PO SCH ×2 (08:56→20:27)
[2022-01-28 09:53] VITALS: BP 117/74
[2022-01-28] MEDS: ZOLPIDEM TARTRATE 10 MG TABLET PO PRN (21:42)
[2022-01-29 02:10] VITALS: BP 110/78
[2022-01-29 09:30] VITALS: BP 125/68
[2022-01-29] MEDS: ARIPiprazole 10 MG TABLET PO SCH (09:42)
[2022-01-29] MEDS: RisperiDONE 3 MG TABLET PO SCH ×2 (09:43→21:02)
[2022-01-29] MEDS: PANTOPRAZOLE SODIUM 40 MG DR TABLET PO SCH (09:43)
[2022-01-29] MEDS: DIVALPROEX SODIUM 500 MG DR TABLET PO SCH ×2 (09:43→21:00)
[2022-01-29] MEDS: HALOPERIDOL 5 MG TABLET PO PRN ×2 (13:44→21:03)
[2022-01-29] MEDS: LORazepam 2 MG TABLET PO PRN (13:44)
[2022-01-29 20:42] VITALS: BP 110/65
[2022-01-29] MEDS: ZOLPIDEM TARTRATE 10 MG TABLET PO PRN (21:03)
[2022-01-30] MEDS: PANTOPRAZOLE SODIUM 40 MG DR TABLET PO SCH (08:47)
[2022-01-30] MEDS: DIVALPROEX SODIUM 500 MG DR TABLET PO SCH ×2 (08:47→20:10)
[2022-01-30] MEDS: ARIPiprazole 10 MG TABLET PO SCH (08:47)
[2022-01-30] MEDS: RisperiDONE 3 MG TABLET PO SCH (08:47)
[2022-01-30] MEDS ORDERED: PANT-31 PO (09:44)
[2022-01-30] MEDS ORDERED: DIVA-112 PO (09:44)
[2022-01-30] MEDS ORDERED: PALI234D IM (09:44)
[2022-01-30] MEDS ORDERED: ARIP10TA38 PO (09:44)
[2022-01-30 20:32] VITALS: BP 138/65
[2022-01-30] MEDS: LORazepam 2 MG TABLET PO PRN (22:15)
[2022-01-31 08:02] VITALS: BP 111/70
[2022-01-31] MEDS: DIVALPROEX SODIUM 500 MG DR TABLET PO SCH (09:00)
[2022-01-31] MEDS: ARIPiprazole 10 MG TABLET PO SCH (09:06)
[2022-01-31] MEDS: PANTOPRAZOLE SODIUM 40 MG DR TABLET PO SCH (09:06)
[2022-02-06] MEDS ORDERED: PALIPERIDONE PALMITATE 234 MG/1.5 ML SYRINGE IM SCH (09:00)
== END 2022-01-31 14:50 | disposition home or self-care (01) | DRG 885 ==
LOC: B2X 12:21
PROVIDERS: ADMIT Psychiatry & Neurology Psychiatry; ATTEND Psychiatry & Neurology Psychiatry
DX: F25.0 Schizoaffective disorder, bipolar type (principal); J03.90 Acute tonsillitis, unspecified; Z20.822 Contact with and (suspected) exposure to COVID-19; I10 Essential (primary) hypertension; J30.2 Other seasonal allergic rhinitis; K21.9 Gastro-esophageal reflux disease without esophagitis; F10.10 Alcohol abuse, uncomplicated; F19.10 Other psychoactive substance abuse, uncomplicated; Y90.9 Presence of alcohol in blood, level not specified; Z88.0 Allergy status to penicillin; Z88.2 Allergy status to sulfonamides; Z79.899 Other long term (current) drug therapy; Z59.00 Homelessness unspecified
CPT/HCPCS: 80053; 80061; 80164; 81003; 83036; 84436; 84439; 84443; 84702; 84703; 85025; 87081; J1200; J1630; J2060; J3535